=== PATIENT | female | born 1970 | race Caucasian/White ===

== ENCOUNTER 2018-03-12 19:01 | Inpatient (IN) ==
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
--- NOTE | 2018-03-12 20:25 | XR ---
EXAM DATE: 03/12/2018 8:00 PM EDT AGE/SEX: 47 years / Female INDICATIONS: . Cough. CLINICAL DATA: This is the patient's initial encounter. Patient reports that signs and symptoms have been present for 1 day and indicates a pain score of 0/10. MEDICAL/SURGICAL HISTORY: Asthma. None. COMPARISON: [facility], CHEST 1V SINGLE AP, 02/15/2018. . FINDINGS: PA and lateral views of the chest demonstrate the lungs to be symmetrically aerated without evidence of mass, infiltrate or effusion. The cardiomediastinal contours are unremarkable. Osseous structures are intact. CONCLUSION: No evidence of acute cardiopulmonary disease. Electronically signed by: Red Urban MD 03/12/2018 8:24 PM EDT
[2018-03-12 20:52] LABS: Baso # (Auto) 0.2 th/mm3 (0.0-0.2); Baso % (Auto) 1.4 % (0.0-2.0); Eos # (Auto) 0.3 th/mm3 (0.0-0.4); Hemoglobin 13.9 gm/dL (11.6-15.3); Lymph # (Auto) 3.3 th/mm3 (1.0-4.8); Lymph % (Auto) 20.8 % (9.0-44.0); Mean Corpuscular HGB Conc 33.8 % (32.0-36.0); Mean Corpuscular Hemoglobin 29.9 pg (27.0-34.0); Mean Corpuscular Volume 88.3 fL (80.0-100.0); Mean Platelet Volume 8.5 fL (7.0-11.0); Mono # (Auto) 0.8 th/mm3 (0.0-0.9); Mono % (Auto) 5.1 % (0.0-8.0); Neut # (Auto) 11.1 th/mm3 (1.8-7.7); Neut % (Auto) 70.7 % (16.0-70.0); Platelet Count 439 th/mm3 (150-450); Red Blood Count 4.64 mil/mm3 (4.00-5.30); Red Cell Distribution Width 14.4 % (11.6-17.2); White Blood Count 15.7 th/mm3 (4.0-11.0)
[2018-03-12 20:59] LABS: Amphetamine Screen,Urine Neg (Neg); Bacteria,Urine Many /hpf; Barbiturate Screen,Urine Neg (Neg); Bilirubin,Urine Negative (Negative); Calcium Oxalate Crystals,Urine Moderate /hpf; Cannabinoid Screen,Urine Neg (Neg); Clarity,Urine Cloudy (Clear); Cocaine Screen,Urine Neg (Neg); Color,Urine Yellow (Yellw/Straw); Glucose,Urine (UA) Negative (Negative); Leukocyte Esterase,Urine Trace (Negative); Mucus,Urine Moderate /lpf (Occasional); Nitrite,Urine Negative (Negative); Specific Gravity,Urine 1.013 (1.002-1.035); Squamous Epithelial Cell,Urine 17 /hpf (0-5)
[2018-03-12 21:07] LABS: Albumin 2.8 g/dL (3.4-5.0); Anion Gap 9 meq/L (5-15); Aspartate Aminotransferase 8 U/L (15-37); Blood Urea Nitrogen 6 mg/dL (7-18); Calcium 7.9 mg/dL (8.5-10.1); Carbon Dioxide 24.2 meq/L (21.0-32.0); Chloride 108 meq/L (98-107); Glomerular Filtration Rate 59 mL/min (>89); Glucose,Random 101 mg/dL (74-106); Potassium 3.4 meq/L (3.5-5.1); Sodium 141 meq/L (136-145)
[2018-03-12 21:09] LABS: Opiate Screen,Urine Neg (Neg)
[2018-03-12 21:19] LABS: Alanine Aminotransferase 12 U/L (10-53); Alkaline Phosphatase 89 U/L (45-117); Thyroid Stimulating Hormone 0.835 uIU/mL (0.358-3.740); Total Protein 6.5 g/dL (6.4-8.2)
[2018-03-12] MEDS ORDERED: QUEtiapine 100 MG Tablet PO ONE (23:06)
[2018-03-13] MEDS ORDERED: Aluminum/Magnesium/Simethacone Susp 30 ML UDC PO PRN (09:56)
[2018-03-13] MEDS ORDERED: Bisacodyl 10 MG Supp RECTAL PRN (09:56)
[2018-03-13] MEDS ORDERED: Topiramate 25 MG Tablet PO SCH (10:15)
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
[2018-03-13] MEDS: LORazepam 1 MG Tablet PO SCH (15:55)
[2018-03-13] MEDS: Gabapentin 300 MG Capsule PO SCH ×2 (16:02→17:57)
[2018-03-13] MEDS: Senna/Docusate Sodium 8.6/50 MG Tablet PO SCH (21:10)
[2018-03-14] MEDS: Gabapentin 300 MG Capsule PO SCH ×3 (08:40→17:52)
[2018-03-14] MEDS: Senna/Docusate Sodium 8.6/50 MG Tablet PO SCH ×3 (08:41→22:17)
[2018-03-14 09:48] LABS: Calcium 8.3 mg/dL (8.5-10.1); Carbon Dioxide 26.1 meq/L (21.0-32.0)
[2018-03-14 09:51] LABS: Chol/HDL Ratio 4.19 Ratio; HDL Cholesterol 39.1 mg/dL (40.0-60.0)
[2018-03-14 13:02] LABS: Hemoglobin A1c 5.6 % (4.3-6.0)
--- NOTE | 2018-03-14 15:06 | P.CONID ---
History of Present Illness Service: ID Consult date: 03/14/18 Requesting Physician: Jenn Bourgeois Reason for Consult: ESBL + E.coli UTI Primary Care Provider: UNKNOWN Chief Complaint: Suicidial Ideation History of Present Illness: 47 yo female with medical history significant for bipolar depression and asthma who presents with complaint of suicidal ideation. She states that for the last 2 weeks she has had increased racing thoughts with increased thoughts of wanting to hurt herself. . She also admits to a dry, nonproductive cough over the last month that has not been relieved with lxgg-ilg-xdeirsy cold medicines and her albuterol inhalers and nebulizers. She denies any fever, chills, she told me that her temp @ home was 99.9 She c/o generalised weakness Her temp on presentation was 100.3 WBC was 15 K UA has pyuria, and clx are + for ESBL E.coli with R to bactrim, cipro Pt was started on Keflex She denies abdominal or back pain or disuria. She denies any headaches. C/o halluconations Review of Systems All other systems reviewed negative except as stated in HPI PMFSH - History History Provided By: Patient - Medical History Medical History: Medical History (Last Reviewed 03/14/18 @ 14:55 by Angeles Dumont MD) Depressed bipolar affective disorder Extrapyramidal movement disorder Hx of migraines Hx of psychiatric care Hx of urinary tract infection Neuropathy, generalized - Surgical History Surgical History: Surgical History (Last Reviewed 03/14/18 @ 14:55 by Angeles Dumont MD) Hx of section Hx of tubal ligation - Family History Family History: Family History (Last Updated 03/14/18 @ 14:55 by Angeles Dumont MD) Other No pertinent family history - Social History I have reviewed the patient's Social History: Yes - Tobacco History Second Hand Smoke Exposure: Yes Tobacco Use In Past 30 Days: Yes Smoking Status: Heavy tobacco smoker Tobacco Type: Cigarettes - Alcohol History How Often Do You Have a Drink Containing Alcohol: Never - Substance Use History Substance History: No History of Abuse - Travel History Recent Travel in the [place] Within the Last 8 Weeks: No Recent Travel Out of the Country Within the Last 8 Weeks: No - Immunization History Tetanus Immunization: <5 Years Hx Influenza Vaccine This Season: No Medications and Allergies Active Medications: Active Medications Al Hydrox/Mg Hydrox/Simethicone (Mag-Al Plus Susp Liq) 30 ml PO Q6H PRN PRN Reason: DYSPEPSIA Al Hydroxide/Mg Hydroxide (Milk Of Magnesia Liq) 30 ml PO Q12H PRN PRN Reason: Mild Constipation Bisacodyl (Dulcolax Supp) 10 mg RECTAL DAILY PRN PRN Reason: SEVERE CONSITIPATION Cephalexin Monohydrate (Keflex) 500 mg PO BID [facility] Stop: 03/17/18 21:14 Last Admin: 03/14/18 08:40 Dose: 500 mg Gabapentin (Neurontin) 300 mg PO TID [facility] Last Admin: 03/14/18 13:07 Dose: 300 mg Lactulose (Lactulose Liq) 30 ml PO DAILY PRN PRN Reason: SEVERE CONSITIPATION Lorazepam (Ativan) 1 mg PO TID [facility] Last Admin: 03/13/18 15:55 Dose: Not Given Quetiapine Fumarate (Seroquel) 400 mg PO BID [facility] Last Admin: 03/13/18 10:40 Dose: 400 mg Senna/Docusate Sodium (Caitlin-Colace) 1 tab PO BID [facility] Last Admin: 03/14/18 08:41 Dose: Not Given Sennosides (Senokot) 17.2 mg PO Q12H PRN PRN Reason: Moderate Constipation Topiramate (Topamax) 50 mg PO BID [facility] Last Admin: 03/13/18 10:41 Dose: 50 mg Allergies Allergy/AdvReac Type Severity Reaction Status Date / Time dextromethorphan Allergy Severe FACE Verified 02/21/18 02:00 SWELLED guaifenesin Allergy Severe FACE Verified 02/21/18 02:00 SWELLED Home Medications Medication Instructions Recorded Confirmed Type gabapentin 300 mg PO TID 02/15/18 03/12/18 History quetiapine [Seroquel] 400 mg PO BID 02/15/18 03/12/18 History sertraline 100 mg PO DAILY 02/15/18 03/12/18 History topiramate 50 mg PO BID 02/15/18 03/12/18 History trihexyphenidyl 5 mg PO HS 02/15/18 03/12/18 History lorazepam 1 mg PO TID 03/12/18 03/12/18 History Exam Vital signs: Vital Signs 03/14/18 05:25 Temperature 98.3 F Pulse Rate 64 Respiratory Rate 17 Blood Pressure 86/52 L Pulse Oximetry 95 Intake & Output 03/13/18 03/14/18 03/14/18 18:59 06:59 18:59 Intake Total 240 / 240 Balance 240 / 240 Weight 76.2 kg Intake: Oral 240 / 240 Other: Weight On Admission 76.2 kg - Constitutional no acute distress, morbidly obese, cooperative - Routine HEENT Exam Head: Present: normocephalic, atraumatic Eye: Present: EOMI, PERRL ENT: Present: mucous membranes moist, oropharynx clear. Absent: dentition normal (edentulous) - Routine Neck Exam Present: supple. Absent: JVD - Routine Respiratory Exam Present: CTA bilaterally. Absent: accessory muscle use, respiratory distress, rhonchi, wheezes - Routine Cardiovascular Exam Present: RRR, S1, S2, murmur (3/6 harsh systolic ejection murmur) - Routine Abdominal Exam Present: soft, normoactive bowel sounds, tenderness, distended. Absent: organomegaly, mass - Routine Extremities Exam Present: full ROM, normal capillary refill. Absent: cyanosis, clubbing, edema - Routine Back/Spine/Pelvis Exam Back/Spine: Absent: CVA tenderness, paraspinal tenderness, vertebral tenderness - Routine Skin Exam Present: intact, dry, warm. Absent: rash - Routine Neurological Exam Present: alert, oriented X3, CN II-XII intact, moving all extremities, vision grossly intact, hearing grossly intact, normal speech - Routine Psychiatric Exam Present: auditory hallucinations, visual hallucinations, cooperative Results - Labs CBC & Chem 7: 03/12/18 20:30 03/14/18 09:00 Labs: Laboratory Results - last 24 hr 03/14/18 03/14/18 09:00 09:00 Sodium 144 Potassium 4.0 Chloride 109 H Carbon Dioxide 26.1 Anion Gap 9 BUN 5 L Creatinine 0.90 Estimated GFR 68 L Random Glucose 98 Hemoglobin A1c 5.6 Calcium 8.3 L Triglycerides 148 Cholesterol 164 LDL Cholesterol, Calc 95 HDL Cholesterol 39.1 L Cholesterol/HDL Ratio 4.19 - Imaging Chest X-Ray 03/12/18 20:00 CONCLUSION: No evidence of acute cardiopulmonary disease. Assessment and Plan - Plan Pt admitted to psych floor for hallucinations, suicidal ideations Fever, leukocytosiss, source is likely UTI' UTI, ESBL + E.coli - excess sq epi cells on UA noted transfer pt to med psych repeat UA/C+S if indicated Start Ertapenen 1 gm daily after UA and clx obtained monitor clinicaly and WBC further rec's to follow per clinical course and labs lacey RN lacey Lopez
[2018-03-14 15:48] LABS: Baso # (Auto) 0.1 th/mm3 (0.0-0.2); Eos # (Auto) 0.3 th/mm3 (0.0-0.4); Eos % (Auto) 3.8 % (0.0-4.0); Hematocrit 37.2 % (35.0-46.0); Hemoglobin 13.3 gm/dL (11.6-15.3); Lymph # (Auto) 2.9 th/mm3 (1.0-4.8); Mean Corpuscular HGB Conc 35.9 % (32.0-36.0); Mean Corpuscular Hemoglobin 31.9 pg (27.0-34.0); Mono # (Auto) 0.7 th/mm3 (0.0-0.9); Mono % (Auto) 7.3 % (0.0-8.0); Neut % (Auto) 55.9 % (16.0-70.0); Platelet Count 426 th/mm3 (150-450); Red Blood Count 4.18 mil/mm3 (4.00-5.30); Red Cell Distribution Width 14.3 % (11.6-17.2)
[2018-03-14 16:13] LABS: Albumin 2.6 g/dL (3.4-5.0); Anion Gap 5 meq/L (5-15); Aspartate Aminotransferase 11 U/L (15-37); Blood Urea Nitrogen 9 mg/dL (7-18); Calcium 8.3 mg/dL (8.5-10.1); Carbon Dioxide 31.3 meq/L (21.0-32.0); Chloride 106 meq/L (98-107); Glomerular Filtration Rate 63 mL/min (>89); Glucose,Random 92 mg/dL (74-106); Potassium 4.2 meq/L (3.5-5.1); Sodium 142 meq/L (136-145)
[2018-03-14 16:16] LABS: Alanine Aminotransferase 14 U/L (10-53); Alkaline Phosphatase 82 U/L (45-117); Total Protein 6.5 g/dL (6.4-8.2)
--- NOTE | 2018-03-14 16:16 | P.CONIM ---
History of Present Illness Consult date: 03/14/18 Reason for Consult: Medical management Primary Care Provider: UNKNOWN Chief Complaint: Suicidial Ideation Review of Systems All other systems reviewed negative except as stated in HPI [facility] - History History Provided By: Patient - Medical History Medical History: Medical History (Last Reviewed 03/14/18 @ 16:12 by Chana Lopez MD) Depressed bipolar affective disorder Extrapyramidal movement disorder Hx of migraines Hx of psychiatric care Hx of urinary tract infection Neuropathy, generalized - Surgical History Surgical History: Surgical History (Last Reviewed 03/14/18 @ 16:12 by Chana Lopez MD) Hx of section Hx of tubal ligation - Family History Family History: Family History (Last Reviewed 03/14/18 @ 16:12 by Chana Lopez MD) Other No pertinent family history - Tobacco History Second Hand Smoke Exposure: Yes Tobacco Use In Past 30 Days: Yes Smoking Status: Heavy tobacco smoker Tobacco Type: Cigarettes - Alcohol History How Often Do You Have a Drink Containing Alcohol: Never - Substance Use History Substance History: No History of Abuse - Substance Use Type Alcohol Status: Sustained Remission Route Used: By Mouth Reason for Use: Get High Comment: 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 Patient was vauge with specific substances other than ETOH. She stated she had mandated DCF classes but did not report any other counseling. - Travel History Recent Travel in the [place] Within the Last 8 Weeks: No Recent Travel Out of the Country Within the Last 8 Weeks: No - Immunization History Tetanus Immunization: <5 Years Hx Influenza Vaccine This Season: No Medications and Allergies Active Medications: Active Medications Al Hydrox/Mg Hydrox/Simethicone (Mag-Al Plus Susp Liq) 30 ml PO Q6H PRN PRN Reason: DYSPEPSIA Al Hydroxide/Mg Hydroxide (Milk Of Magnesia Liq) 30 ml PO Q12H PRN PRN Reason: Mild Constipation Bisacodyl (Dulcolax Supp) 10 mg RECTAL DAILY PRN PRN Reason: SEVERE CONSITIPATION Cephalexin Monohydrate (Keflex) 500 mg PO BID [facility] Stop: 03/17/18 21:14 Last Admin: 03/14/18 08:40 Dose: 500 mg Gabapentin (Neurontin) 300 mg PO TID [facility] Last Admin: 03/14/18 13:07 Dose: 300 mg Lactulose (Lactulose Liq) 30 ml PO DAILY PRN PRN Reason: SEVERE CONSITIPATION Lorazepam (Ativan) 1 mg PO TID [facility] Last Admin: 03/13/18 15:55 Dose: Not Given Quetiapine Fumarate (Seroquel) 400 mg PO BID [facility] Last Admin: 03/13/18 10:40 Dose: 400 mg Senna/Docusate Sodium (Caitlin-Colace) 1 tab PO BID [facility] Last Admin: 03/14/18 08:41 Dose: Not Given Sennosides (Senokot) 17.2 mg PO Q12H PRN PRN Reason: Moderate Constipation Topiramate (Topamax) 50 mg PO BID [facility] Last Admin: 03/13/18 10:41 Dose: 50 mg Allergies Allergy/AdvReac Type Severity Reaction Status Date / Time dextromethorphan Allergy Severe FACE Verified 02/21/18 02:00 SWELLED guaifenesin Allergy Severe FACE Verified 02/21/18 02:00 SWELLED Home Medications Medication Instructions Recorded Confirmed Type gabapentin 300 mg PO TID 02/15/18 03/12/18 History quetiapine [Seroquel] 400 mg PO BID 02/15/18 03/12/18 History sertraline 100 mg PO DAILY 02/15/18 03/12/18 History topiramate 50 mg PO BID 02/15/18 03/12/18 History trihexyphenidyl 5 mg PO HS 02/15/18 03/12/18 History lorazepam 1 mg PO TID 03/12/18 03/12/18 History Exam Vital signs: Vital Signs 03/14/18 05:25 Temperature 98.3 F Pulse Rate 64 Respiratory Rate 17 Blood Pressure 86/52 L Pulse Oximetry 95 Intake & Output 03/13/18 03/14/18 03/14/18 18:59 06:59 18:59 Intake Total 240 / 240 Balance 240 / 240 Weight 76.2 kg Intake: Oral 240 / 240 Other: Weight On Admission 76.2 kg Narrative: General patient in no acute distress HEENT extraocular movements are intact, clear oropharyngeal mucosa, no JVD Cardiovascular S1-S2 audible, RRR, no murmurs rubs or gallops Respiratory clear to auscultation bilaterally Abdomen soft, nontender, nondistended, normal bowel sounds Extremities no edema 2+ distal pulses in bilateral upper and lower extremities Neuro cranial nerves II through XII intact Results - Labs CBC & Chem 7: 03/14/18 15:32 03/14/18 15:32 Labs: Laboratory Results - last 24 hr 03/14/18 03/14/18 03/14/18 09:00 09:00 15:32 WBC 9.0 RBC 4.18 Hgb 13.3 Hct 37.2 MCV 89.0 MCH 31.9 MCHC 35.9 RDW 14.3 Plt Count 426 MPV 8.0 Neut % (Auto) 55.9 Lymph % (Auto) 32.0 [place] % (Auto) 7.3 Eos % (Auto) 3.8 Baso % (Auto) 1.0 Neut # (Auto) 5.0 Lymph # (Auto) 2.9 [place] # (Auto) 0.7 Eos # (Auto) 0.3 Baso # (Auto) 0.1 WBC Differential . Differential Comment Auto diff final Sodium 144 Potassium 4.0 Chloride 109 H Carbon Dioxide 26.1 Anion Gap 9 BUN 5 L Creatinine 0.90 Estimated GFR 68 L Random Glucose 98 Hemoglobin A1c 5.6 Calcium 8.3 L Triglycerides 148 Cholesterol 164 LDL Cholesterol, Calc 95 HDL Cholesterol 39.1 L Cholesterol/HDL Ratio 4.19 Assessment and Plan - Plan This patient is a 47-year-old obese female who initially presented to the emergency department with suicidal ideation. She has a diagnosis of schizophrenia, bipolar disorder, anxiety, and depression. She has had multiple psychiatric consultations in the past as well as suicide attempts throughout her lifetime. Other medical problems include asthma, COPD, history of tobacco smoking and chronic migraines. A medicine consultation was placed today for evaluation of the patient due to a urinary tract infection and low blood pressure. 1. Systemic inflammatory response syndrome likely secondary to a urinary tract infection. As per dog mentation the patient had a febrile episode when she first arrived to our emergency department. Initial labs showed elevated WBC count of 15,000. Initial urinalysis is consistent with a urinary tract infection however it was not a good sample given the high epithelial cells. Vital signs showed a systolic blood pressure in the high 80s. We evaluated the patient in the psych unit and her systolic blood pressure is around 118. The patient was found to be ambulating the unit without any complaints. I discussed the case with infectious disease, we will repeat the urinalysis and if the patient does have a urinary tract infection she will be started on ertapenem as the preliminary culture from the initial urinalysis was showing MDR ESBL E. coli. The patient will be transferred to the [facility] psych unit. Chest x-ray was done which does not show any infiltrates. Patient denies any shortness of breath or cough. ID following. 2. Schizophrenia/bipolar disorder/anxiety/depression Patient can continue her current medications. She will be in the psych unit and her psych medications can be adjusted by the psychiatrist as needed. 3. COPD Patient is on room air without any complaints of shortness of breath. If she does begin to have any complaints of shortness of breath she can be started on breathing treatments. Heparin for DVT prophylaxis.
[2018-03-14] MEDS: Sodium Chloride 0.45 % Inj 1,000 ML IV.CONT SCH (17:52)
--- NOTE | 2018-03-14 19:25 | P.PNPSY ---
Subjective Remarks: Reviewed electronic medical records and discussed case with staff. Follow-up was conducted in the patient's room. Her nurse reports she is been compliant with her medications and has had no behavioral disturbances. She states that she has been sleeping off and on and that her appetite has been "kind of better ". When asked about her mood she launches into a story about, "when I see people and I hear them my mood is bad". She maintains that she has been seeing even more people since being in the hospital. Patient's urine culture came back positive for E. coli with ESBL present. A consult was ordered and patient was subsequently moved to [facility] for IV antibiotic treatment. Mental Status Examination Appearance: Other (Asleep intially, Dressed in hospital gown, laying in bed) Consciousness: Alert, Asleep, Lethargic Orientation: x4 Speech: Slow Language: Adequate Fund of Knowledge: Adequate Attention and Concentration: Adequate Memory: Immediate (intact), Recent (intact), Remote (intact) Mood: Other ("I'm scared of the voices, they're angry at me and are telling me to hurt myself") Affect: Appropriate, Flat Thought Process & Associations: Logical, Linear Thought Content: Bizarre thinking, Hallucinations, Racing thoughts Hallucination Type: Auditory (Reports 4-5 voices that occur all the time and all at once and describes them as "Angry" and "They tell me to kill myself"), Visual ("I'm seeing people, but they don't talk, they just listen." She denies that these are people from her past or people that she knows.) Delusion Type: Paranoid (Paranoia centered around Auditory and Visual Hallucinations) Suicidal Ideation: Yes Suicidal Plan: Yes (Cutting or Shooting herself) Suicidal Intention: Yes Homicidal Ideation: No (Denies wanting to hurt others and states "the voices only tell me to hurt myself") Homicidal Plan: No Homicidal Intention: No Insight: Fair (She knew she needed help and requested to be brought to [facility] voluntarily) Judgment: Adequate (She knew she needed help and requested to be brought to [facility] voluntarily) Assessment and Plan - Assessment (1) Schizophrenia Code(s): F20.9 - Schizophrenia, unspecified Status: Acute - Plan Plan: Patient will be reevaluated Friday by the attending psychiatrist. Continue with current treatment plan. Justification for Continued Inpatient Stay: Moving this patient to a less restrictive environment would likely result in decompensation. (1) Schizophrenia Qualifiers: Schizophrenia type: paranoid schizophrenia Qualified Code(s): F20.0 - Paranoid schizophrenia
[2018-03-14] MEDS: Heparin - SQ 10,000 UNITS/ML Vial SQ SCH (22:00)
[2018-03-14] MEDS ORDERED: Haloperidol Inj 5 MG/ML Ampul IM SCH (22:42)
[2018-03-15] MEDS: Sodium Chloride 0.45 % Inj 1,000 ML IV.CONT SCH ×3 (03:58→22:15)
[2018-03-15] MEDS ORDERED: Senna/Docusate Sodium 8.6/50 MG Tablet PO PRN (10:07)
--- NOTE | 2018-03-15 10:07 | P.PNPSY ---
Subjective Remarks: Patient seen for follow, chart reviewed. Discussion nursing staff reported the patient this morning continues report auditory hallucinations of ghosts, had ETO this evening due to the same but slept last night. Patient was found sitting in hospital bed noted to be calm, cooperative. Patient states she has "alot of voices in my head, they want me". She denies the auditory hallucinations as being command in nature. She reports sleeping "off and on", adequate appetite and bowel movement. She states that she had been having loose stool for some time but happy that today is was more formed. Review of Systems All other systems reviewed negative except as stated in HPI Mental Status Examination Appearance: Disheveled Consciousness: Alert, Asleep, Lethargic Orientation: x4 Speech: Slow Language: Adequate Fund of Knowledge: Adequate Attention and Concentration: Adequate Memory: Immediate (intact), Recent (intact), Remote (intact) Mood: Other ("I'm scared of the voices, they're angry at me and are telling me to hurt myself") Affect: Appropriate, Flat Thought Process & Associations: Logical, Linear Thought Content: Bizarre thinking, Hallucinations, Racing thoughts Hallucination Type: Auditory (Reports 4-5 voices that occur all the time and all at once and describes them as "Angry" and "They tell me to kill myself"), Visual ("I'm seeing people, but they don't talk, they just listen." She denies that these are people from her past or people that she knows.) Delusion Type: Paranoid (Paranoia centered around Auditory and Visual Hallucinations) Suicidal Ideation: Yes Suicidal Plan: Yes (Cutting or Shooting herself) Suicidal Intention: No Homicidal Ideation: No Homicidal Plan: No Homicidal Intention: No Insight: Fair Judgment: Adequate Assessment and Plan - Assessment (1) Schizophrenia Code(s): F20.9 - Schizophrenia, unspecified Status: Acute - Plan Plan: Patient this time continues with perceptual disturbances along with disturbed sleep. Patient will resume quetiapine along with rest of medication regimen. We will continue to monitor mood and behavior. We will continue recommendations as per hospitalist consult, input appreciated. Discharge planning a progress. Justification for Continued Inpatient Stay: At risk of further decompensation a lower level of care. (1) Schizophrenia Qualifiers: Schizophrenia type: paranoid schizophrenia Qualified Code(s): F20.0 - Paranoid schizophrenia
[2018-03-15] MEDS: Gabapentin 300 MG Capsule PO SCH ×3 (10:25→18:11)
[2018-03-15] MEDS: Heparin - SQ 10,000 UNITS/ML Vial SQ SCH (10:25)
[2018-03-15 11:57] LABS: Bilirubin,Urine Negative (Negative); Clarity,Urine Clear (Clear); Color,Urine Straw (Yellw/Straw); Glucose,Urine (UA) Negative (Negative); Leukocyte Esterase,Urine Negative (Negative); Mucus,Urine Few /lpf (Occasional); Nitrite,Urine Negative (Negative); Specific Gravity,Urine 1.005 (1.002-1.035); Squamous Epithelial Cell,Urine 3 /hpf (0-5)
--- NOTE | 2018-03-15 18:13 | P.PNID ---
Subjective Remarks: feels good repeat UA negative afebrile Antibiotics: keflex Allergies/Adverse Reactions: Allergies dextromethorphan Allergy (Severe, Verified 02/21/18 02:00) FACE SWELLED guaifenesin Allergy (Severe, Verified 02/21/18 02:00) FACE SWELLED Objective Vital Signs 03/15/18 05:58 03/15/18 16:28 Temperature 97.7 F 98.5 F Pulse Rate 59 L Respiratory Rate 18 Blood Pressure 113/54 L 128/66 Pulse Oximetry 99 98 Intake & Output 03/14/18 03/15/18 03/15/18 18:59 06:59 18:59 Intake Total 960 / 960 1340 / 1340 1000 / 1000 Balance 960 / 960 1340 / 1340 1000 / 1000 Intake: IV 0 / 0 1000 / 1000 1/2 Normal Saline Inj 1,000 ML 0 / 0 1000 / 1000 @ 100 mls/hr IV.CONT .Q10H MARIA C Rx#:[id number] Oral 960 / 960 1340 / 1340 Other: # Voids 1 03/14/18 15:37 Blood - Peripheral Aerobic Blood Culture - Preliminary No growth in 1 day 03/14/18 15:37 Blood - Peripheral Anaerobic Blood Culture - Preliminary No growth in 1 day 03/14/18 15:32 Blood - Peripheral Aerobic Blood Culture - Preliminary No growth in 1 day 03/14/18 15:32 Blood - Peripheral Anaerobic Blood Culture - Preliminary No growth in 1 day 03/12/18 20:30 Clean Catch Urine Urine Culture - Final Escherichia coli ESBL positive Lab - Hematology Results 03/14/18 15:32 WBC 9.0 RBC 4.18 Hgb 13.3 Hct 37.2 MCV 89.0 MCH 31.9 MCHC 35.9 RDW 14.3 Plt Count 426 MPV 8.0 Neut % (Auto) 55.9 Lymph % (Auto) 32.0 [place] % (Auto) 7.3 Eos % (Auto) 3.8 Baso % (Auto) 1.0 Neut # (Auto) 5.0 Lymph # (Auto) 2.9 [place] # (Auto) 0.7 Eos # (Auto) 0.3 Baso # (Auto) 0.1 WBC Differential . Differential Comment Auto diff final Lab - Chemistry Results 03/14/18 03/14/18 03/14/18 09:00 09:00 15:32 Sodium 144 142 Potassium 4.0 4.2 Chloride 109 H 106 Carbon Dioxide 26.1 31.3 Anion Gap 9 5 BUN 5 L 9 Creatinine 0.90 0.96 Estimated GFR 68 L 63 L Random Glucose 98 92 Hemoglobin A1c 5.6 Calcium 8.3 L 8.3 L Total Bilirubin 0.1 L AST 11 L ALT 14 Alkaline Phosphatase 82 Total Protein 6.5 Albumin 2.6 L Triglycerides 148 Cholesterol 164 LDL Cholesterol, Calc 95 HDL Cholesterol 39.1 L Cholesterol/HDL Ratio 4.19 Imaging: ITS Impressions Chest X-Ray 03/12/18 20:00 CONCLUSION: No evidence of acute cardiopulmonary disease. Physical Exam: GENERAL: NAD. ambulated in the room SKIN: Warm and dry. NEUROLOGICAL: Awake and alert. Five out of 5 muscle strength in the arms and legs. Normal speech. PSYCHIATRIC: Appropriate mood and affect; Assessment and Plan - Plan Pt admitted to psych floor for hallucinations, suicidal ideations Fever, leukocytosiss, resolved no e/o UTI, - excess sq epi cells on UA noted - repeat UA is good collection and has no e/o infection ESBL + E.coli asymptomatic bacteremiuria monitor clincially no need to start Ertapennem dc keflex lacey RN
--- NOTE | 2018-03-15 20:57 | P.PNIM ---
Subjective Interval history: Patient with no complaints. Physical Exam Vital signs: Vital Signs 03/15/18 05:58 03/15/18 16:28 Temperature 97.7 F 98.5 F Pulse Rate 59 L Respiratory Rate 18 Blood Pressure 113/54 L 128/66 Pulse Oximetry 99 98 Intake & Output 03/15/18 03/15/18 03/16/18 06:59 18:59 06:59 Intake Total 1340 / 1340 2200 / 2200 Balance 1340 / 1340 2200 / 2200 Intake: IV 0 / 0 1000 / 1000 1/2 Normal Saline Inj 1,000 ML 0 / 0 1000 / 1000 @ 100 mls/hr IV.CONT .Q10H MARIA C Rx#:[id number] Oral 1340 / 1340 1200 / 1200 Other: # Voids 1 3 Narrative: General patient in no acute distress HEENT extraocular movements are intact, clear oropharyngeal mucosa, no JVD Cardiovascular S1-S2 audible, RRR, no murmurs rubs or gallops Respiratory clear to auscultation bilaterally Abdomen soft, nontender, nondistended, normal bowel sounds Extremities no edema 2+ distal pulses in bilateral upper and lower extremities Neuro cranial nerves II through XII intact Results - Labs CBC & Chem 7: 03/14/18 15:32 03/14/18 15:32 Laboratory Results - last 24 hr 03/15/18 11:30 Urine Color Straw Urine Clarity Clear Urine pH 8.0 Ur Specific Concepcion 1.005 Urine Protein Negative Urine Glucose (UA) Negative Urine Ketones Negative Urine Occult Blood Negative Urine Nitrate Negative Urine Bilirubin Negative Urine Urobilinogen Less than 2 Ur Leukocyte Esterase Negative Urine RBC Less than 1 Urine WBC Less than 1 Ur Squamous Epith Cells 3 Urine Mucus Few H Micro UA Comment Culture not ind Ur Microscopic Review Not Reportable Urine Culture Comments Culture not ind Microbiology 03/14/18 15:37 Blood - Peripheral Aerobic Blood Culture - Preliminary No growth in 1 day 03/14/18 15:37 Blood - Peripheral Anaerobic Blood Culture - Preliminary No growth in 1 day 03/14/18 15:32 Blood - Peripheral Aerobic Blood Culture - Preliminary No growth in 1 day 03/14/18 15:32 Blood - Peripheral Anaerobic Blood Culture - Preliminary No growth in 1 day Assessment and Plan - Plan This patient is a 47-year-old obese female who initially presented to the emergency department with suicidal ideation. She has a diagnosis of schizophrenia, bipolar disorder, anxiety, and depression. She has had multiple psychiatric consultations in the past as well as suicide attempts throughout her lifetime. Other medical problems include asthma, COPD, history of tobacco smoking and chronic migraines. A medicine consultation was placed today for evaluation of the patient due to a urinary tract infection and low blood pressure. 1. Suspected UTI Repeat U/A shows no signs of UTI. ID evaluated patient. No need for antibiotics Continue to monitor the patient. Blood cultures negative, follow up final culture Patient afebrile. 2. Schizophrenia/bipolar disorder/anxiety/depression Patient can continue her current medications. She will be in the psych unit and her psych medications can be adjusted by the psychiatrist as needed. 3. COPD Patient is on room air without any complaints of shortness of breath. If she does begin to have any complaints of shortness of breath she can be started on breathing treatments. Heparin for DVT prophylaxis. Internal medicine will sign off, consult if our help is needed.
[2018-03-16] MEDS: Heparin - SQ 10,000 UNITS/ML Vial SQ SCH ×3 (06:09→21:35)
[2018-03-16] MEDS: Gabapentin 300 MG Capsule PO SCH ×3 (09:47→17:00)
[2018-03-16] MEDS: LORazepam 1 MG Tablet PO SCH ×3 (09:47→17:00)
--- NOTE | 2018-03-16 16:52 | P.PNPSY ---
Subjective Remarks: Patient seen for follow-up, chart reviewed. Discussion with nursing staff reported that patient patient lab values improving, denying any auditory hallucinations, agrees to shower today. Patient was found sitting in hospital bed eating breakfast noted B, cooperative. Patient states that she slept well last evening, reports feeling "better" states that she was feeling a little confused during the day but is alert and oriented x3 at this time. Patient reports eating and drinking well with adequate bowel movement. Patient states her heart hallucinations are "going away, not as many" and also reports seeing "less ghosts, fading away". Patient states that she realizes that the visual hallucinations are perceptional disturbances. She also mentions that she lives with her mother and was visited by her mother recently. Patient reports being able to return back to her mother's home upon discharge. Patient denies any suicidal homicidal ideations at this time. Review of Systems All other systems reviewed negative except as stated in HPI Mental Status Examination Appearance: Disheveled Consciousness: Alert, Asleep, Lethargic Orientation: x4 Speech: Unremarkable Language: Adequate Fund of Knowledge: Adequate Attention and Concentration: Adequate Memory: Immediate (intact), Recent (intact), Remote (intact) Mood: Other ("I'm scared of the voices, they're angry at me and are telling me to hurt myself") Affect: Appropriate Thought Process & Associations: Logical, Linear Thought Content: Bizarre thinking (Lessening), Hallucinations (Lessening) Hallucination Type: Auditory, Visual (Lessening) Delusion Type: Paranoid (Lessening) Suicidal Ideation: No Suicidal Plan: No Suicidal Intention: No Homicidal Ideation: No Homicidal Plan: No Homicidal Intention: No Insight: Fair Judgment: Adequate Assessment and Plan - Assessment (1) Schizophrenia Code(s): F20.9 - Schizophrenia, unspecified Status: Acute - Plan Plan: Patient this time appears to have lessening of perceptional disturbances, reporting her mood to be improving. We will continue current treatment. Continue recommendations as per prior medical team. We will continue to monitor mood and behavior. Discharge planning in progress. Justification for Continued Inpatient Stay: At risk of further decompensation a lower level of care. (1) Schizophrenia Qualifiers: Schizophrenia type: paranoid schizophrenia Qualified Code(s): F20.0 - Paranoid schizophrenia
[2018-03-17] MEDS: LORazepam 1 MG Tablet PO SCH ×3 (09:11→17:45)
[2018-03-17] MEDS: Gabapentin 300 MG Capsule PO SCH ×3 (09:12→17:45)
[2018-03-17] MEDS: Heparin - SQ 10,000 UNITS/ML Vial SQ SCH ×2 (11:38→20:36)
--- NOTE | 2018-03-17 16:30 | P.PNPSY ---
Subjective Remarks: Patient seen for follow-up, chart reviewed. Discussion with nursing staff reported that patient compliant medications, slept well, denying any perceptional services or suicide ideations today. Patient was found eating lunch in the room was able to engage in interview and seen with nurse today. Patient states that she slept well last evening although reporting having " weird dreams about mother and aunt". Patient states that she is upset that her aunt is wanting to charge her rent for a room but will not respect her privacy. Patient stated that she will try to settle this issue with [facility] family. Patient reports her mood is being "good" although reporting some confusion at times but denying any auditory hallucinations and minimal visual hallucinations of ghosts. Patient reports tolerating medications well denying any significant adverse drug reactions other than some somnolence with morning dose. Patient provides collateral contact information for her mother, Keysha Posada [phone]. Review of Systems All other systems reviewed negative except as stated in HPI Mental Status Examination Appearance: Appropriate, Disheveled Consciousness: Alert, Asleep, Lethargic Orientation: x4 Speech: Unremarkable Language: Adequate Fund of Knowledge: Adequate Attention and Concentration: Adequate Memory: Immediate (intact), Recent (intact), Remote (intact) Mood: Other ("Better") Affect: Appropriate Thought Process & Associations: Logical, Linear Thought Content: Appropriate Hallucination Type: None Delusion Type: Paranoid (Lessening) Suicidal Ideation: No Suicidal Plan: No Suicidal Intention: No Homicidal Ideation: No Homicidal Plan: No Homicidal Intention: No Insight: Fair Judgment: Adequate Assessment and Plan - Assessment (1) Schizophrenia Code(s): F20.9 - Schizophrenia, unspecified Status: Acute - Plan Plan: Patient noted with improvement in mood, reports lessening of perceptional disturbances, denying any suicidal ideations today. We will continue current treatment. We will continue to monitor mood and behavior. Discharge planning in progress. Justification for Continued Inpatient Stay: At risk of further decompensation at lower level care. (1) Schizophrenia Qualifiers: Schizophrenia type: paranoid schizophrenia Qualified Code(s): F20.0 - Paranoid schizophrenia
[2018-03-17 17:26] VITALS: O2SAT 98
[2018-03-18 05:51] VITALS: PULSE 92; RESP 18; TEMP 98.3
[2018-03-18 06:38] VITALS: BP 105/70
[2018-03-18] MEDS: Heparin - SQ 10,000 UNITS/ML Vial SQ SCH (08:40)
[2018-03-18] MEDS: Gabapentin 300 MG Capsule PO SCH (08:40)
[2018-03-18] MEDS: LORazepam 1 MG Tablet PO SCH (08:40)
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
== END 2018-03-18 12:10 | disposition home or self-care (01) ==
LOC: NEPD 19:01 → NEDA 03-13 09:56 → H260 03-13 11:43 → H4EA 03-14 15:03 → H260 03-16 14:35
PROVIDERS: ADMIT Student in an Organized Health Care Education/Training Program; ATTEND Student in an Organized Health Care Education/Training Program

== ENCOUNTER 2018-03-23 11:39 | Observation (INO) ==
--- NOTE | 2018-03-23 13:19 | CT ---
EXAM DATE: 03/23/2018 12:08 PM EDT AGE/SEX: 47 years / Female INDICATIONS: Severe headache with memory loss since last night. CLINICAL DATA: This is the patient's initial encounter. Patient reports that signs and symptoms have been present for 1 day and indicates a pain score of 7/10. MEDICAL/SURGICAL HISTORY: Stroke. Migraines section. Tubal ligation. RADIATION DOSE: 56.77 CTDI (mGy) COMPARISON: [facility], MRA BRAIN W/O CONTRAST, 01/31/2012. . TECHNIQUE: CT of the head without contrast. Using automated exposure control and adjustment of the mA and/or kV according to patient size, radiation dose was kept as low as reasonably achievable to ob tain optimal diagnostic quality images. DICOM format image data is available electronically for revi ew and comparison. FINDINGS: Cerebrum: The ventricles are normal for age. No evidence of midline shift, mass lesion, hemorrhage or acute infarction. No extraaxial fluid collections are seen. Posterior Fossa: The cerebellum and brainstem are intact. The 4th ventricle is midline. The cerebe llopontine angle is unremarkable. Extracranial: The visualized portion of the orbits is intact. Skull: The calvaria is intact. No evidence of skull fracture. CONCLUSION: 1. Negative CT Head non contrast. . Electronically signed by: Wade Osman MD 03/23/2018 1:18 PM EDT
--- NOTE | 2018-03-23 17:02 | XR ---
EXAM DATE: 03/23/2018 4:33 PM EDT AGE/SEX: 47 years / Female INDICATIONS: Chest pain. Possible stroke. CLINICAL DATA: This is the patient's initial encounter. Patient reports that signs and symptoms have been present for 2 days and indicates a pain score of 3/10. MEDICAL/SURGICAL HISTORY: . Stroke. Migraines. . section. Tubal ligation. COMPARISON: [facility] [place], CHEST 2V PA&LAT, 03/12/2018. . FINDINGS: A single AP view of the chest demonstrates the lungs to be symmetrically aerated without evidence of mass, infiltrate or effusion. Linear atelectasis involving the left base. The cardiomediastinal conto urs are unremarkable. Osseous structures are intact. CONCLUSION: Negative examination. Electronically signed by: Marco Damian MD 03/23/2018 5:00 PM EDT
[2018-03-23 17:28] LABS: Baso # (Auto) 0.1 th/mm3 (0.0-0.2); Baso % (Auto) 1.1 % (0.0-2.0); Eos # (Auto) 0.4 th/mm3 (0.0-0.4); Eos % (Auto) 3.8 % (0.0-4.0); Hemoglobin 13.1 gm/dL (11.6-15.3); Lymph # (Auto) 3.4 th/mm3 (1.0-4.8); Mean Corpuscular HGB Conc 33.7 % (32.0-36.0); Mean Corpuscular Hemoglobin 30.4 pg (27.0-34.0); Mean Corpuscular Volume 90.3 fL (80.0-100.0); Mean Platelet Volume 8.8 fL (7.0-11.0); Mono # (Auto) 0.5 th/mm3 (0.0-0.9); Neut # (Auto) 6.5 th/mm3 (1.8-7.7); Neut % (Auto) 59.1 % (16.0-70.0); Platelet Count 464 th/mm3 (150-450); Red Blood Count 4.31 mil/mm3 (4.00-5.30); Red Cell Distribution Width 15.2 % (11.6-17.2); White Blood Count 10.9 th/mm3 (4.0-11.0)
[2018-03-23 17:33] LABS: Bacteria,Urine Rare /hpf; Bilirubin,Urine Negative (Negative); Clarity,Urine Hazy (Clear); Color,Urine Yellow (Yellw/Straw); Glucose,Urine (UA) Negative (Negative); Leukocyte Esterase,Urine Negative (Negative); Mucus,Urine Few /lpf (Occasional); Nitrite,Urine Negative (Negative); Specific Gravity,Urine 1.018 (1.002-1.035); Squamous Epithelial Cell,Urine 8 /hpf (0-5)
[2018-03-23 17:42] LABS: Alanine Aminotransferase 44 U/L (10-53)
[2018-03-23 17:46] LABS: INR 0.9 Ratio; Prothrombin Time 9.4 sec (9.8-11.6)
[2018-03-23 17:52] LABS: Alkaline Phosphatase 81 U/L (45-117); Anion Gap 9 meq/L (5-15); Aspartate Aminotransferase 35 U/L (15-37); Blood Urea Nitrogen 11 mg/dL (7-18); Calcium 8.1 mg/dL (8.5-10.1); Carbon Dioxide 21.2 meq/L (21.0-32.0); Chloride 109 meq/L (98-107); Creatine Kinase 167 U/L (26-192); Glomerular Filtration Rate 62 mL/min (>89); Glucose,Random 94 mg/dL (74-106); Sodium 139 meq/L (136-145)
[2018-03-23 17:53] LABS: Potassium 4.8 meq/L (3.5-5.1)
--- NOTE | 2018-03-23 18:28 | ED ---
HPI General Chief Complaint: Neuro Symptoms/Deficit Stated Complaint: Body Pain Complaint Time Seen by Provider: 03/23/18 16:21 Source: patient, EMS and RN notes reviewed Mode of arrival: EMS Limitations: no limitations History of Present Illness HPI Narrative: 47-year-old female the presents to the ED for evaluation of possible stroke. Per patient herself she believes that she might have had a stroke. Per patient she had 7 severe pain on her sides of her mouth and on her face. Per patient she started having issues with her mentation stating that she could not remember things. She also states that she has slurred speech. She denies any numbness or tingling to the upper or lower extremities bilaterally. She is able to ablate with no issues. She states that "I cannot remember my last name ". She does appear to have some aphasia and she does have trouble remembering things. She does have some repetitive questioning. Per patient she does have a history of CVA in the past per patient. She also has a history of bipolar and schizophrenia. States that she may have a urinary tract infection as well. Currently pain is 4/10. Denies any trauma. Related Data Home Medications Medication Instructions Recorded Confirmed hydroxyzine HCl 25 mg PO TID PRN 03/23/18 03/23/18 sertraline 100 mg PO DAILY 03/23/18 03/23/18 topiramate [Topamax] 50 mg PO DAILY 03/23/18 03/23/18 trazodone 100 mg PO DAILY PRN 03/23/18 03/23/18 ziprasidone HCl 40 mg PO BID 03/23/18 03/23/18 Previous Rx's Medication Instructions Recorded gabapentin 300 mg PO TID 15 Days #45 cap 03/18/18 quetiapine [Seroquel] 400 mg PO BID 15 Days #30 tab 03/18/18 Allergies Allergy/AdvReac Type Severity Reaction Status Date / Time dextromethorphan Allergy Severe FACE Verified 02/21/18 02:00 SWELLED guaifenesin Allergy Severe FACE Verified 02/21/18 02:00 SWELLED Review of Systems ROS: all other systems reviewed are negative [facility] Medical History Medical History Depressed bipolar affective disorder (Acute) Extrapyramidal movement disorder (Acute) Hx of migraines (Acute) Hx of psychiatric care (Acute) Hx of urinary tract infection (Acute) Neuropathy, generalized (Acute) Surgical History Surgical History Hx of section (Acute) Hx of tubal ligation (Acute) Family History Family History Other No pertinent family history Social History Social History Substance History: No History of Abuse Second Hand Smoke Exposure: Yes Smoking Status: Current every day smoker Tobacco Type: Cigarettes How Often Do You Have a Drink Containing Alcohol: Never Recent Travel in [facility] within the Last 8 Weeks: No Recent Out of Country Travel within the Last 8 Weeks: No Immunization History Tetanus Immunization: Unsure Exam Narrative Exam Narrative: GENERAL: Well appearing SKIN: Focused skin assessment warm/dry. HEAD: Atraumatic. Normocephalic. EYES: Pupils equal and round 4 mms reactive and accommodation. No scleral icterus. No injection or drainage. ENT: No nasal bleeding or discharge. Mucous membranes pink and moist. Tongue is midline. No uvula deviation. NECK: Trachea midline. No JVD. CARDIOVASCULAR: Regular rate and rhythm. No murmur appreciated. RESPIRATORY: No accessory muscle use. Clear to auscultation. Breath sounds equal bilaterally. GASTROINTESTINAL: Abdomen soft, non-tender, nondistended. Hepatic and splenic margins not palpable. MUSCULOSKELETAL: No obvious deformities. No clubbing. No cyanosis. No edema. Full range of motion of the upper and lower extremities bilaterally. 2+ pulses bilaterally. NEUROLOGICAL: Awake and alert and oriented x4. No obvious cranial nerve deficits. Motor grossly within normal limits. Slurred speech. PSYCHIATRIC: Appropriate mood and affect; insight and judgment normal. Course Initial Documented Vital Signs Temperature 99.7 F H 03/23/18 11:41 Pulse Rate 112 H 03/23/18 11:41 Respiratory Rate 20 03/23/18 11:41 Blood Pressure 142/71 H 03/23/18 11:41 Pulse Oximetry 99 03/23/18 11:41 Last Documented Vital Signs Temperature 99.7 F H 03/23/18 11:41 Pulse Rate 76 03/23/18 16:47 Respiratory Rate 18 03/23/18 16:00 Blood Pressure 123/63 03/23/18 16:00 Pulse Oximetry 98 03/23/18 16:47 NIH Stroke Scale NIH Stroke Scale Level of Consciousness: 0-Alert Orientation Questions: 0-Answers both correct Responds to Commands: 0-Both tasks correct Gaze Eye Movement: 0-Horizontal movement WNL Visual Braun: 0-No visual field defect Facial Movement: 0-Normal Motor Functions Arm LEFT: 0-No drift Motor Functions Arm RIGHT: 0-No drift Motor Functions Leg LEFT: 0-No drift Motor Functions Leg RIGHT: 0-No drift Limb Ataxia: 0-No ataxia Sensory Loss: 0-No sensory loss Best Language: 1-Mild aphasia Articulation: 0-Normal Extinction or Inattention Sensory: 0-Absent Total: 1 Medical Decision Making MDM Narrative Medical decision making narrative: 47-year-old female that presents to the ED for evaluation of possible stroke. Patient was properly examined and was found to have signs and symptoms of unclear etiology. She does appear to have some slurred speech and aphasia but is unclear if this is psychiatric or neurological. She does have a significant history of psychiatric illness. She per patient has a history of CVA and unfortunately I do not have any records of this. She does not have any obvious weakness to the extremities. Her NIH score is 1. Symptoms started since yesterday. My attending Dr. Radford was made aware of findings and agrees the patient can be admitted for further CVA workup rule out. BERNIE was bita and Dr España agrees to admission. Medical Screen Exam Complete: Yes Emergency Medical Condition: Yes Medical Records Medical records reviewed: Yes I reviewed the patient's medical records. Lab Data Lab results reviewed: Yes I reviewed the patient's lab results. Result diagrams: 03/23/18 17:00 03/23/18 17:00 Lab Results 03/23/18 03/23/18 03/23/18 Range/Units 17:00 17:00 17:00 WBC 10.9 (4.0-11.0) th/mm3 RBC 4.31 (4.00-5.30) mil/mm3 Hgb 13.1 (11.6-15.3) gm/dL Hct 39.0 (35.0-46.0) % MCV 90.3 (80.0-100.0) fL MCH 30.4 (27.0-34.0) pg MCHC 33.7 (32.0-36.0) % RDW 15.2 (11.6-17.2) % Plt Count 464 H (150-450) th/mm3 MPV 8.8 (7.0-11.0) fL Neut % (Auto) 59.1 (16.0-70.0) % Lymph % (Auto) 31.0 (9.0-44.0) % [place] % (Auto) 5.0 (0.0-8.0) % Eos % (Auto) 3.8 (0.0-4.0) % Baso % (Auto) 1.1 (0.0-2.0) % Neut # (Auto) 6.5 (1.8-7.7) th/mm3 Lymph # (Auto) 3.4 (1.0-4.8) th/mm3 [place] # (Auto) 0.5 (0.0-0.9) th/mm3 Eos # (Auto) 0.4 (0.0-0.4) th/mm3 Baso # (Auto) 0.1 (0.0-0.2) th/mm3 WBC Differential . Differential Comment Auto diff final PT 9.4 L (9.8-11.6) sec INR 0.9 Ratio APTT 21.0 L (24.3-30.1) sec Sodium 139 (136-145) meq/L Potassium 4.8 (3.5-5.1) meq/L Chloride 109 H (98-107) meq/L Carbon Dioxide 21.2 (21.0-32.0) meq/L Anion Gap 9 (5-15) meq/L BUN 11 (7-18) mg/dL Creatinine 0.97 (0.50-1.00) mg/dL Estimated GFR 62 L (>89) mL/min Random Glucose 94 (74-106) mg/dL Calcium 8.1 L (8.5-10.1) mg/dL Total Bilirubin 0.2 (0.2-1.0) mg/dL AST 35 (15-37) U/L ALT 44 (10-53) U/L Alkaline Phosphatase 81 (45-117) U/L Total Creatine Kinase 167 (26-192) U/L CK-MB (CK-2) Less than 1.0 (0.5-3.6) ng/mL Troponin I Less than 0.02 L (0.02-0.05) ng/mL Total Protein 7.0 (6.4-8.2) g/dL Albumin 3.0 L (3.4-5.0) g/dL Urine Color (Yellw/Straw) Urine Clarity (Clear) Urine pH (5.0-8.5) Ur Specific [place] (1.002-1.035) Urine Protein (Neg-Trace) mg/dL Urine Glucose (UA) (Negative) mg/dL Urine Ketones (Negative) mg/dL Urine Occult Blood (Negative) Urine Nitrate (Negative) Urine Bilirubin (Negative) Urine Urobilinogen (Less than 2) mg/dL Ur Leukocyte Esterase (Negative) Urine RBC (0-3) /hpf Urine WBC (0-5) /hpf Ur Squamous Epith Cells (0-5) /hpf Urine Bacteria (None) /hpf Urine Mucus (Occasional) /lpf Micro UA Comment Ur Microscopic Review Urine Culture Comments 03/23/18 Range/Units 17:10 WBC (4.0-11.0) th/mm3 RBC (4.00-5.30) mil/mm3 Hgb (11.6-15.3) gm/dL Hct (35.0-46.0) % MCV (80.0-100.0) fL MCH (27.0-34.0) pg MCHC (32.0-36.0) % RDW (11.6-17.2) % Plt Count (150-450) th/mm3 MPV (7.0-11.0) fL Neut % (Auto) (16.0-70.0) % Lymph % (Auto) (9.0-44.0) % [place] % (Auto) (0.0-8.0) % Eos % (Auto) (0.0-4.0) % Baso % (Auto) (0.0-2.0) % Neut # (Auto) (1.8-7.7) th/mm3 Lymph # (Auto) (1.0-4.8) th/mm3 [place] # (Auto) (0.0-0.9) th/mm3 Eos # (Auto) (0.0-0.4) th/mm3 Baso # (Auto) (0.0-0.2) th/mm3 WBC Differential Differential Comment PT (9.8-11.6) sec INR Ratio APTT (24.3-30.1) sec Sodium (136-145) meq/L Potassium (3.5-5.1) meq/L Chloride (98-107) meq/L Carbon Dioxide (21.0-32.0) meq/L Anion Gap (5-15) meq/L BUN (7-18) mg/dL Creatinine (0.50-1.00) mg/dL Estimated GFR (>89) mL/min Random Glucose (74-106) mg/dL Calcium (8.5-10.1) mg/dL Total Bilirubin (0.2-1.0) mg/dL AST (15-37) U/L ALT (10-53) U/L Alkaline Phosphatase (45-117) U/L Total Creatine Kinase (26-192) U/L CK-MB (CK-2) (0.5-3.6) ng/mL Troponin I (0.02-0.05) ng/mL Total Protein (6.4-8.2) g/dL Albumin (3.4-5.0) g/dL Urine Color Yellow (Yellw/Straw) Urine Clarity Hazy H (Clear) Urine pH 5.0 (5.0-8.5) Ur Specific [place] 1.018 (1.002-1.035) Urine Protein Negative (Neg-Trace) mg/dL Urine Glucose (UA) Negative (Negative) mg/dL Urine Ketones Negative (Negative) mg/dL Urine Occult Blood Negative (Negative) Urine Nitrate Negative (Negative) Urine Bilirubin Negative (Negative) Urine Urobilinogen Less than 2 (Less than 2) mg/dL Ur Leukocyte Esterase Negative (Negative) Urine RBC 1 (0-3) /hpf Urine WBC 2 (0-5) /hpf Ur Squamous Epith Cells 8 (0-5) /hpf Urine Bacteria Rare H (None) /hpf Urine Mucus Few H (Occasional) /lpf Micro UA Comment Culture not ind Ur Microscopic Review Not Reportable Urine Culture Comments Culture not ind Imaging Data Attestation: I personally reviewed and interpreted this imaging study as follows : Radiologist's impression: Head CT 03/23/18 11:49 CONCLUSION: 1. Negative CT Head non contrast. . Chest X-Ray 03/23/18 16:33 CONCLUSION: Negative examination. ECG Data Attestation: I personally reviewed and interpreted this ECG as follows: Interpretation: EKG shows sinus rhythm with no sign of acute ischemia and arrhythmia read by me and attending. Discharge Plan Discharge Disposition Patient Disposition: 30 Still Patient Discharge Details Diagnosis: Aphasia, Acute CVA (cerebrovascular accident) Physicians Team ED Provider: Rufina Radford ED Midlevel Provider: Derrek Mcwilliams Primary Care Provider: Primary Care Physici,Ethel Rxs /Orders / Referrals /Forms Prescriptions: No Action gabapentin 300 mg Capsule 300 mg PO TID 15 Days Qty: 45 RF: 1 quetiapine [Seroquel] 400 mg Tablet 400 mg PO BID 15 Days Qty: 30 RF: 1 sertraline 100 mg Tablet 100 mg PO DAILY RF: 0 trazodone 100 mg Tablet 100 mg PO DAILY PRN (Reason: insomina) RF: 0 hydroxyzine HCl 25 mg Tablet 25 mg PO TID PRN (Reason: Anxiety) RF: 0 ziprasidone HCl 40 mg Capsule 40 mg PO BID RF: 0 topiramate [Topamax] 25 mg tablet 50 mg PO DAILY RF: 0 Discharge Interventions Interventions: Vital Signs Last Done: 03/23/18 16:00 Status ED Status: Admitted Observation Patient
--- NOTE | 2018-03-23 20:34 | P.HP ---
History of Present Illness Service: [facility] Primary Care Physician: No Primary Care Physician History of Present Illness: 47-year-old female with a past medical history significant for previous CVA, COPD, bipolar disorder, depression and schizophrenia presents to the emergency department for the evaluation of neurologic symptoms that began last night. The patient states they started as bilateral temporal pain that extended across her forehead. She reports taking Excedrin Migraine with no relief. Upon waking up this morning she had slurred speech and bilateral hand weakness. She also complained of word finding difficulties and bilateral lower extremity weakness. She denies any chest pain or shortness of breath. No fever/chills. No abdominal pain. No nausea/vomiting/diarrhea. Review of Systems All other systems reviewed negative except as stated in HPI [facility] - History History Provided By: Family Member - Medical History Medical History: Medical History (Last Updated 03/23/18 @ 20:19 by Saira Zendejas MD) Cerebral arteriosclerosis with history of previous cerebrovascular accident Schizophrenia Depressed bipolar affective disorder Extrapyramidal movement disorder Hx of migraines Hx of psychiatric care Hx of urinary tract infection Neuropathy, generalized - Surgical History Surgical History: Surgical History (Last Updated 03/23/18 @ 20:19 by Saira Zendejas MD) History of bladder surgery History of knee surgery Hx of section Hx of tubal ligation - Family History Family History: Family History (Last Reviewed 03/23/18 @ 20:20 by Saira Zendejas MD) Other No pertinent family history - Tobacco History Second Hand Smoke Exposure: Yes Tobacco Use In Past 30 Days: Yes Smoking Status: Current every day smoker Tobacco Type: Cigarettes - Alcohol History How Often Do You Have a Drink Containing Alcohol: Never - Substance Use History Substance History: No History of Abuse - Travel History Recent Travel in the [place] Within the Last 8 Weeks: No Recent Travel Out of the Country Within the Last 8 Weeks: No - Immunization History Tetanus Immunization: Unsure Medications and Allergies Active Medications: Active Medications Al Hydroxide/Mg Hydroxide (Milk Of Erin Linikolai) 30 ml PO Q12H PRN PRN Reason: Mild Constipation Aspirin (Aspirin) 325 mg PO DAILY MARIA C Sodium Chloride (Ns Inj) 1,000 mls @ 100 mls/hr IV.CONT .Q10H MARIA C Allergies Allergy/AdvReac Type Severity Reaction Status Date / Time dextromethorphan Allergy Severe FACE Verified 02/21/18 02:00 SWELLED guaifenesin Allergy Severe FACE Verified 02/21/18 02:00 SWELLED Home Medications Medication Instructions Recorded Confirmed Type hydroxyzine HCl 25 mg PO TID PRN 03/23/18 03/23/18 History sertraline 100 mg PO DAILY 03/23/18 03/23/18 History topiramate [Topamax] 50 mg PO DAILY 03/23/18 03/23/18 History trazodone 100 mg PO DAILY PRN 03/23/18 03/23/18 History ziprasidone HCl 40 mg PO BID 03/23/18 03/23/18 History Exam Vital signs: Vital Signs 03/23/18 11:41 03/23/18 16:00 03/23/18 16:47 Temperature 99.7 F H Pulse Rate 112 H 75 76 Respiratory Rate 20 18 Blood Pressure 142/71 H 123/63 Pulse Oximetry 99 98 98 Intake & Output 03/23/18 03/23/18 03/24/18 06:59 18:59 06:59 Weight 75.75 kg Narrative: Gen.: No acute distress Head: Normocephalic. Atraumatic. EENT: Pupils equal round and reactive to light. Nose without drainage. Airway intact. Throat without injection. Cardiovascular: Regular rate and rhythm. No murmurs, rubs or gallops. Respiratory: Lungs clear to auscultation bilaterally. No wheezes or rhonchi. Abdomen: Soft, nontender, nondistended. No peritoneal signs. Musculoskeletal: No gross deformities. No edema. Skin: No obvious rashes or erythema. Neuro: Cranial nerves II through XII intact. Slowed speech, baseline unknown. Right lower extremity strength 3/5, left lower extremity strength 0/5 although patient's participation in the exam is questionable. Upper extremity strength 5 /5 bilaterally. Results - Labs CBC & Chem 7: 03/23/18 17:00 03/23/18 17:00 Labs: Laboratory Results - last 24 hr 03/23/18 03/23/18 03/23/18 17:00 17:00 17:00 WBC 10.9 RBC 4.31 Hgb 13.1 Hct 39.0 MCV 90.3 MCH 30.4 MCHC 33.7 RDW 15.2 Plt Count 464 H MPV 8.8 Neut % (Auto) 59.1 Lymph % (Auto) 31.0 [place] % (Auto) 5.0 Eos % (Auto) 3.8 Baso % (Auto) 1.1 Neut # (Auto) 6.5 Lymph # (Auto) 3.4 [place] # (Auto) 0.5 Eos # (Auto) 0.4 Baso # (Auto) 0.1 WBC Differential . Differential Comment Auto diff final PT 9.4 L INR 0.9 APTT 21.0 L Sodium 139 Potassium 4.8 Chloride 109 H Carbon Dioxide 21.2 Anion Gap 9 BUN 11 Creatinine 0.97 Estimated GFR 62 L Random Glucose 94 Calcium 8.1 L Total Bilirubin 0.2 AST 35 ALT 44 Alkaline Phosphatase 81 Total Creatine Kinase 167 CK-MB (CK-2) Less than 1.0 Troponin I Less than 0.02 L Total Protein 7.0 Albumin 3.0 L Urine Color Urine Clarity Urine pH Ur Specific [place] Urine Protein Urine Glucose (UA) Urine Ketones Urine Occult Blood Urine Nitrate Urine Bilirubin Urine Urobilinogen Ur Leukocyte Esterase Urine RBC Urine WBC Ur Squamous Epith Cells Urine Bacteria Urine Mucus Micro UA Comment Ur Microscopic Review Urine Culture Comments 03/23/18 17:10 WBC RBC Hgb Hct MCV MCH MCHC RDW Plt Count MPV Neut % (Auto) Lymph % (Auto) [place] % (Auto) Eos % (Auto) Baso % (Auto) Neut # (Auto) Lymph # (Auto) [place] # (Auto) Eos # (Auto) Baso # (Auto) WBC Differential Differential Comment PT INR APTT Sodium Potassium Chloride Carbon Dioxide Anion Gap BUN Creatinine Estimated GFR Random Glucose Calcium Total Bilirubin AST ALT Alkaline Phosphatase Total Creatine Kinase CK-MB (CK-2) Troponin I Total Protein Albumin Urine Color Yellow Urine Clarity Hazy H Urine pH 5.0 Ur Specific [place] 1.018 Urine Protein Negative Urine Glucose (UA) Negative Urine Ketones Negative Urine Occult Blood Negative Urine Nitrate Negative Urine Bilirubin Negative Urine Urobilinogen Less than 2 Ur Leukocyte Esterase Negative Urine RBC 1 Urine WBC 2 Ur Squamous Epith Cells 8 Urine Bacteria Rare H Urine Mucus Few H Micro UA Comment Culture not ind Ur Microscopic Review Not Reportable Urine Culture Comments Culture not ind - Imaging Impressions Head CT 03/23/18 11:49 CONCLUSION: 1. Negative CT Head non contrast. . Chest X-Ray 03/23/18 16:33 CONCLUSION: Negative examination. Caprini VTE Risk Assessment Caprini VTE Risk Assessment: No/Low Risk (score <= 1) Caprini Risk Assessment Model: Point Value = 1 Point Value = 2 Point Value = 3 Point Value = 5 Age 41-60 Minor surgery BMI > 25 kg/m2 Swollen legs Varicose veins or History of unexplained or recurrent spontaneous Oral contraceptives or hormone replacement Sepsis (< 1 month) Serious lung disease, including pneumonia (< 1 month) Abnormal pulmonary function Acute myocardial infarction Congestive heart failure (< 1 month) History of inflammatory bowel disease Medical patient at bed rest Age 61-74 Arthroscopic surgery Major open surgery (> 45 min) Laparoscopic surgery (> 45 min) Malignancy Confined to bed (> 72 hours) Immobilizing plaster cast Central venous access Age >= 75 History of VTE Family history of VTE Factor V Leiden Prothrombin [id number] Lupus anticoagulant Anticardiolipin antibodies Elevated serum homocysteine Heparin-induced thrombocytopenia Other congenital or acquired thrombophilia Stroke (< 1 month) Elective arthroplasty Hip, pelvis, or leg fracture Acute spinal cord injury (< 1 month) Prophylaxis Regimen: Total Risk Factor Score Risk Level Prophylaxis Regimen 0-1 Low Early ambulation 2 Moderate Order ONE of the following: *Sequential Compression Device (SCD) *Heparin 5000 units SQ BID 3-4 Higher Order ONE of the following medications: *Heparin 5000 units SQ TID *Enoxaparin/Lovenox 40 mg SQ daily (WT < 150 kg, CrCl > 30 mL/min) *Enoxaparin/Lovenox 30 mg SQ daily (WT < 150 kg, CrCl > 10-29 mL/min) *Enoxaparin/Lovenox 30 mg SQ BID (WT < 150 kg, CrCl > 30 mL/min) AND/OR *Sequential Compression Device (SCD) 5 or more Highest Order ONE of the following medications: *Heparin 5000 units SQ TID (Preferred with Epidurals) *Enoxaparin/Lovenox 40 mg SQ daily (WT < 150 kg, CrCl > 30 mL/min) *Enoxaparin/Lovenox 30 mg SQ daily (WT < 150 kg, CrCl > 10-29 mL/min) *Enoxaparin/Lovenox 30 mg SQ BID (WT < 150 kg, CrCl > 30 mL/min) AND *Sequential Compression Device (SCD) Assessment and Plan - Plan Assessment/plan: 1. Weakness/slurred speech/dysarthria Patient with history of previous CVA Head CT negative for acute process MRI/MRA pending, carotid ultrasound pending Neurology consulted, appreciate recommendations Aspirin 2. Bipolar disorder/depression/schizophrenia Holding home medications until cleared by neurology as symptoms may be medication effect FEN Regular diet, pending swallow evaluation NS at 100 cc/hour Electrolytes: Monitor and replete as needed
--- NOTE | 2018-03-23 20:38 | MR ---
EXAM DATE: 03/23/2018 7:19 PM EDT AGE/SEX: 47 years / Female INDICATIONS: CVA. Slurred speech since yesterday. CLINICAL DATA: This is the patient's initial encounter. Patient reports that signs and symptoms have been present for 2 days and indicates a pain score of 7/10. MEDICAL/SURGICAL HISTORY: . Strokes- 5 yrs and 7 yrs ago. section. Tubal ligation. L eft knee sx, Bladder sx. COMPARISON: C, MRA HEAD W/O CONTRAST, 03/23/2018. . TECHNIQUE: Multiplanar, multisequence examination of the brain was performed without contrast. FINDINGS: No intracranial mass or midline shift. No hydrocephalus. No evidence for recent infarction. No abnorm al extra-axial fluid collections. No sellar mass identified. CONCLUSION: 1. No acute findings. Specifically no evidence for recent infarction. Electronically signed by: Landon Melissa MD 03/23/2018 8:37 PM EDT
--- NOTE | 2018-03-23 20:42 | MR ---
EXAM DATE: 03/23/2018 7:19 PM EDT AGE/SEX: 47 years / Female INDICATIONS: CVA. Slurred speech since yesterday. CLINICAL DATA: This is the patient's initial encounter. Patient reports that signs and symptoms have been present for 2 days and indicates a pain score of 4/10. MEDICAL/SURGICAL HISTORY: . [place]- 5 and 7 years ago. Tubal ligation. section. Left knee sx. COMPARISON: [facility] – [place], MR HEAD W/O CONTRAST, 03/23/2018. . TECHNIQUE: 3D [id number] MRA was performed. Source images, multiplanar STS MIP, and 3D volum e MIP reconstructions were reviewed. FINDINGS: There is excellent visualization of the major intracranial arteries out to the second-order branch ve ssels. There is no evidence for aneurysm, vessel truncation or stenosis, and no evidence for vascula r malformation. CONCLUSION: 1. No acute findings. Electronically signed by: Landon Melissa MD 03/23/2018 8:41 PM EDT
--- NOTE | 2018-03-23 21:29 | US ---
EXAM DATE: 03/23/2018 12:00 AM EDT AGE/SEX: 47 years / Female INDICATIONS: Cerebrovascular accident. CLINICAL DATA: This is the patient's subsequent encounter. Patient reports that signs and symptoms h ave been present for 4 - 6 days and indicates a pain score of 0/10. MEDICAL/SURGICAL HISTORY: . Bipolar disorder. Urinary tract infection. Neuropathy. se ction. Tubal ligation. COMPARISON: [facility], US CAROTID ARTERIES, 01/31/2012. . VELOCITY PARAMETERS: ICA/CCA Ratio: Right 1.19 , Left 1.02 ICA: Right 112 cm/sec, Left 110 cm/sec CCA: Right 94 cm/sec, Left 108 cm/sec ECA: Right 109 cm/sec, Left 103 cm/sec Vertebral: Right 52 cm/sec antegrade, Left 71 cm/sec antegrade FINDINGS: Right Carotid: No significant plaque is visualized.The waveforms are within normal limits. Left Carotid: No significant plaque is visualized. The waveforms are within normal limits. Other: None. CONCLUSION: 1. Right Internal Carotid Artery: No significant stenosis or atherosclerotic plaque is visualized. 2. Left Internal Carotid Artery: No significant stenosis or atherosclerotic plaque is visualized. Electronically signed by: Landon Melissa MD 03/23/2018 9:27 PM EDT
[2018-03-23] MEDS: Sod Chloride 0.9% Inj 1,000 ML IV.CONT SCH (23:40)
[2018-03-24] MEDS: Sod Chloride 0.9% Inj 1,000 ML IV.CONT SCH ×2 (07:27→18:55)
[2018-03-24 07:41] LABS: Baso # (Auto) 0.1 th/mm3 (0.0-0.2); Baso % (Auto) 1.2 % (0.0-2.0); Eos # (Auto) 0.4 th/mm3 (0.0-0.4); Hematocrit 37.8 % (35.0-46.0); Hemoglobin 12.9 gm/dL (11.6-15.3); Lymph # (Auto) 2.5 th/mm3 (1.0-4.8); Lymph % (Auto) 24.5 % (9.0-44.0); Mean Corpuscular HGB Conc 34.2 % (32.0-36.0); Mean Corpuscular Hemoglobin 30.2 pg (27.0-34.0); Mean Corpuscular Volume 88.4 fL (80.0-100.0); Mean Platelet Volume 8.3 fL (7.0-11.0); Mono # (Auto) 0.6 th/mm3 (0.0-0.9); Mono % (Auto) 5.7 % (0.0-8.0); Neut # (Auto) 6.6 th/mm3 (1.8-7.7); Neut % (Auto) 64.6 % (16.0-70.0); Platelet Count 406 th/mm3 (150-450); Red Blood Count 4.27 mil/mm3 (4.00-5.30); White Blood Count 10.1 th/mm3 (4.0-11.0)
[2018-03-24 07:58] LABS: Albumin 2.8 g/dL (3.4-5.0); Anion Gap 10 meq/L (5-15); Aspartate Aminotransferase 13 U/L (15-37); Blood Urea Nitrogen 10 mg/dL (7-18); Calcium 8.6 mg/dL (8.5-10.1); Carbon Dioxide 19.9 meq/L (21.0-32.0); Chloride 110 meq/L (98-107); Glomerular Filtration Rate 79 mL/min (>89); Glucose,Random 102 mg/dL (74-106); Sodium 140 meq/L (136-145)
[2018-03-24 08:03] LABS: Alanine Aminotransferase 36 U/L (10-53); Alkaline Phosphatase 76 U/L (45-117); Total Protein 6.2 g/dL (6.4-8.2)
--- NOTE | 2018-03-24 08:35 | P.CONNEU ---
History of Present Illness Service: Neurology Primary Care Provider: No Primary Care Physician Chief Complaint: History of stroke, memory deficit History of Present Illness: 'A 47-year-old female apparently relocated from [facility] staying with her mother then moved in with her and on disability for psychiatric disease, with a history of schizophrenia, bipolar, depression tells me she came to the ER for left calf weight pain and worsening memory concerning for stroke. She does receive her psychiatric care from Dominic Bynum. She states she needs to establish care with a psychiatrist as well as primary care physician has been able to get one. States she is requiring some refills on her medications She had an MRI MRA of the brain performed carotid ultrasound all of which were negative for any acute stroke or vaso-occlusive disease. No evidence of any previous stroke States she had a stroke a few years ago treated at [facility] which she had left facial droop which resolved. States her only deficits have been memory. Review of Systems All other systems reviewed negative except as stated in HPI PMFSH - History History Provided By: Family Member - Medical History Medical History: Medical History (Last Reviewed 03/24/18 @ 08:16 by Meghan Barber) Cerebral arteriosclerosis with history of previous cerebrovascular accident Schizophrenia Depressed bipolar affective disorder Extrapyramidal movement disorder Hx of migraines Hx of psychiatric care Hx of urinary tract infection Neuropathy, generalized - Surgical History Surgical History: Surgical History (Last Updated 03/23/18 @ 20:19 by Saira Zendejas MD) History of bladder surgery History of knee surgery Hx of section Hx of tubal ligation - Family History Family History: Family History (Last Reviewed 03/23/18 @ 20:20 by Saira Zendejas MD) Other No pertinent family history - Tobacco History Second Hand Smoke Exposure: Yes Tobacco Use In Past 30 Days: Yes Smoking Status: Current every day smoker Tobacco Type: Cigarettes - Alcohol History How Often Do You Have a Drink Containing Alcohol: Never - Substance Use History Substance History: Past History - Travel History Recent Travel in the [facility] Within the Last 8 Weeks: No Recent Travel Out of the Country Within the Last 8 Weeks: No - Immunization History Tetanus Immunization: Unsure Medications and Allergies Active Medications: Active Medications Al Hydroxide/Mg Hydroxide (Milk Of Magndelia Liq) 30 ml PO Q12H PRN PRN Reason: Mild Constipation Aspirin (Aspirin) 325 mg PO DAILY MARIA C Sodium Chloride (Ns Inj) 1,000 mls @ 100 mls/hr IV.CONT .Q10H MARIA C Last Admin: 03/24/18 07:27 Dose: Not Given Allergies Allergy/AdvReac Type Severity Reaction Status Date / Time dextromethorphan Allergy Severe FACE Verified 02/21/18 02:00 SWELLED guaifenesin Allergy Severe FACE Verified 02/21/18 02:00 SWELLED Home Medications Medication Instructions Recorded Confirmed Type hydroxyzine HCl 25 mg PO TID PRN 03/23/18 03/23/18 History sertraline 100 mg PO DAILY 03/23/18 03/23/18 History topiramate [Topamax] 50 mg PO DAILY 03/23/18 03/23/18 History trazodone 100 mg PO DAILY PRN 03/23/18 03/23/18 History ziprasidone HCl 40 mg PO BID 03/23/18 03/23/18 History Exam Vital signs: Vital Signs 03/23/18 11:41 03/23/18 16:00 03/23/18 16:47 Temperature 99.7 F H Pulse Rate 112 H 75 76 Respiratory Rate 20 18 Blood Pressure 142/71 H 123/63 Pulse Oximetry 99 98 98 03/23/18 20:00 03/24/18 00:00 03/24/18 04:00 Temperature 99.0 F 99.0 F 98.6 F Pulse Rate 76 80 75 Respiratory Rate 16 16 16 Blood Pressure 114/70 121/69 116/77 Pulse Oximetry 97 96 97 03/24/18 08:00 Temperature 98.6 F Pulse Rate 71 Respiratory Rate 16 Blood Pressure 109/72 Pulse Oximetry 98 Intake & Output 03/23/18 03/24/18 03/24/18 18:59 06:59 18:59 Weight 75.75 kg Other: # Voids 3 Narrative: GENERAL: in NAD, SKIN: Warm and dry. HEAD: Atraumatic. Normocephalic. EYES: Pupils equal and round. No scleral icterus. ENT: No nasal bleeding or discharge. Mucous membranes pink and moist. NECK: Trachea midline. No JVD. CARDIOVASCULAR: Regular rate and rhythm. RESPIRATORY: No accessory muscle use. GASTROINTESTINAL: Abdomen soft, non-tender, nondistended. MUSCULOSKELETAL: Extremities without clubbing, cyanosis, or edema. No obvious deformities. NEUROLOGICAL: Awake and alert. No aphasia, oriented x3 pleasant, calm fluent articulate, No facial asymmetry, OU 3-2mm, eomi, VFF, No drift, Motor grossly within normal limits. Five out of 5 muscle strength in the arms and legs. Tone normal in all 4 limbs, Sensory normal in all 4 extremities to pin, msr 2++ sym, no clonus, planterflexor, gait not assessed secondary fall risk PSYCHIATRIC: Appropriate mood and affect; insight and judgment normal. Appear to give a reasonably good history at bedside - Constitutional no acute distress - Routine HEENT Exam Head: Present: normocephalic Eye: Present: EOMI Results - Labs CBC & Chem 7: 03/24/18 07:10 03/24/18 07:10 Labs: Laboratory Results - last 24 hr 03/23/18 03/23/18 03/23/18 17:00 17:00 17:00 WBC 10.9 RBC 4.31 Hgb 13.1 Hct 39.0 MCV 90.3 MCH 30.4 MCHC 33.7 RDW 15.2 Plt Count 464 H MPV 8.8 Neut % (Auto) 59.1 Lymph % (Auto) 31.0 [place] % (Auto) 5.0 Eos % (Auto) 3.8 Baso % (Auto) 1.1 Neut # (Auto) 6.5 Lymph # (Auto) 3.4 [place] # (Auto) 0.5 Eos # (Auto) 0.4 Baso # (Auto) 0.1 WBC Differential . Differential Comment Auto diff final PT 9.4 L INR 0.9 APTT 21.0 L Sodium 139 Potassium 4.8 Chloride 109 H Carbon Dioxide 21.2 Anion Gap 9 BUN 11 Creatinine 0.97 Estimated GFR 62 L Random Glucose 94 Calcium 8.1 L Total Bilirubin 0.2 AST 35 ALT 44 Alkaline Phosphatase 81 Total Creatine Kinase 167 CK-MB (CK-2) Less than 1.0 Troponin I Less than 0.02 L Total Protein 7.0 Albumin 3.0 L Urine Color Urine Clarity Urine pH Ur Specific [place] Urine Protein Urine Glucose (UA) Urine Ketones Urine Occult Blood Urine Nitrate Urine Bilirubin Urine Urobilinogen Ur Leukocyte Esterase Urine RBC Urine WBC Ur Squamous Epith Cells Urine Bacteria Urine Mucus Micro UA Comment Ur Microscopic Review Urine Culture Comments 03/23/18 03/24/18 03/24/18 17:10 07:10 07:10 WBC 10.1 RBC 4.27 Hgb 12.9 Hct 37.8 MCV 88.4 MCH 30.2 MCHC 34.2 RDW 15.0 Plt Count 406 MPV 8.3 Neut % (Auto) 64.6 Lymph % (Auto) 24.5 [place] % (Auto) 5.7 Eos % (Auto) 4.0 Baso % (Auto) 1.2 Neut # (Auto) 6.6 Lymph # (Auto) 2.5 [place] # (Auto) 0.6 Eos # (Auto) 0.4 Baso # (Auto) 0.1 WBC Differential . Differential Comment Auto diff final PT INR APTT Sodium 140 Potassium 4.0 D Chloride 110 H Carbon Dioxide 19.9 L Anion Gap 10 BUN 10 Creatinine 0.79 Estimated GFR 79 L Random Glucose 102 Calcium 8.6 Total Bilirubin 0.1 L AST 13 L ALT 36 Alkaline Phosphatase 76 Total Creatine Kinase CK-MB (CK-2) Troponin I Total Protein 6.2 L D Albumin 2.8 L Urine Color Yellow Urine Clarity Hazy H Urine pH 5.0 Ur Specific [place] 1.018 Urine Protein Negative Urine Glucose (UA) Negative Urine Ketones Negative Urine Occult Blood Negative Urine Nitrate Negative Urine Bilirubin Negative Urine Urobilinogen Less than 2 Ur Leukocyte Esterase Negative Urine RBC 1 Urine WBC 2 Ur Squamous Epith Cells 8 Urine Bacteria Rare H Urine Mucus Few H Micro UA Comment Culture not ind Ur Microscopic Review Not Reportable Urine Culture Comments Culture not ind - Imaging Impressions Carotid Doppler Study 03/23/18 00:00 CONCLUSION: 1. Right Internal Carotid Artery: No significant stenosis or atherosclerotic plaque is visualized. 2. Left Internal Carotid Artery: No significant stenosis or atherosclerotic plaque is visualized. Head MRI 03/23/18 00:00 CONCLUSION: 1. No acute findings. Specifically no evidence for recent infarction. Head MRA 03/23/18 00:00 CONCLUSION: 1. No acute findings. Head CT 03/23/18 11:49 CONCLUSION: 1. Negative CT Head non contrast. . Chest X-Ray 03/23/18 16:33 CONCLUSION: Negative examination. Review/Management - Diagnosis (1) Depression Code(s): F32.9 - Major depressive disorder, single episode, unspecified Status : Acute Current Visit: Yes (2) Bipolar 1 disorder Code(s): F31.9 - Bipolar disorder, unspecified Status: Acute Current Visit: Yes (3) Schizophrenia Code(s): F20.9 - Schizophrenia, unspecified Status: Acute Current Visit: No - Review/Management Plan: Questionable history of previous stroke questionable current symptoms Possible psychogenic component associate with her psychiatric illness Recommendation Medical to evaluate her left calf pain she had a negative [place] on my exam food services director to help her establish care with local physicians Aspirin daily We will obtain EEG, B12, TSH With a brisk lower semi-reflexes we will obtain MRI C-spine to exclude any significant cervical stenosis Therapy May require psychiatric evaluation in versus outpatient Discharge planning thereafter Behavioral modification and risk factor reduction. Weight loss, blood pressure control, blood sugar control, lipid control. Exercise (3) Schizophrenia Qualifiers: Schizophrenia type: paranoid schizophrenia Qualified Code(s): F20.0 - Paranoid schizophrenia
[2018-03-24] MEDS: Aspirin 325 MG Tablet PO SCH (08:39)
[2018-03-24 10:38] LABS: Chol/HDL Ratio 3.99 Ratio; HDL Cholesterol 51.1 mg/dL (40.0-60.0); Thyroid Stimulating Hormone 1.52 uIU/mL (0.358-3.740)
--- NOTE | 2018-03-24 12:19 | MR ---
EXAM DATE: 03/24/2018 9:55 AM EDT AGE/SEX: 47 years / Female INDICATIONS: Extremity weakness. CLINICAL DATA: This is the patient's initial encounter. Patient reports that signs and symptoms have been present for 2 days and indicates a pain score of 2/10. MEDICAL/SURGICAL HISTORY: Stroke. Tubal ligation. Bladder surgery. Left knee surgery. COMPARISON: [facility], MRA CAROTIDS W CONTRAST, 01/31/2012. . TECHNIQUE: Multiplanar, multisequence MRI examination of the cervical spine was performed without co ntrast. FINDINGS: Vertebrae: Normal vertebral body height. Homogeneous marrow signal. Alignment: Normal. Cord: Normal configuration and signal. Post Fossa: The cerebellar tonsils are normal in position. C2-C3: The thecal sac has a normal configuration. There is no evidence of disc herniation or spinal canal stenosis. The neural foramina are patent bilaterally. C3-C4: The thecal sac has a normal configuration. There is no evidence of disc herniation or spinal canal stenosis. The neural foramina are patent bilaterally. C4-C5: The thecal sac has a normal configuration. There is no evidence of disc herniation or spinal canal stenosis. The neural foramina are patent bilaterally. C5-C6: The thecal sac has a normal configuration. There is no evidence of disc herniation or spinal canal stenosis. The neural foramina are patent bilaterally. C6-C7: Tiny central disc bulge with no canal or foraminal narrowing. C7-T1: No epidural impressions seen. CONCLUSION: 1. There is mild disc desiccation and a tiny central disc bulge at C6-7. 2. Minimal anterior osteophyte formation at C5-6. Electronically signed by: Wade Osman MD 03/24/2018 12:17 PM EDT
--- NOTE | 2018-03-24 14:31 | P.PN ---
Subjective Interval history: Follow-up for multiple vague neurological complaints, concern for TIA/CVA. Patient reports feeling better today. She complains of not getting any sleep last night, requesting medication to help her sleep tonight. She states she has a headache with pressure across bilateral frontotemporal lobes. Denies any visual changes, photophobia, nausea. She states her bilateral arm/leg weakness has improved. She does complain of left calf pain although denies noticing any swelling. She denies any chest pain, palpitations, shortness of breath. She is requesting her psychiatric medications be restarted. She has no other medical complaints at this time. Discussed recommendations for aspirin and statin, risks discussed, patient verbalizes understanding and agrees to start medications. Physical Exam Vital signs: Vital Signs 03/23/18 16:00 03/23/18 16:47 03/23/18 20:00 Temperature 99.0 F Pulse Rate 75 76 76 Respiratory Rate 18 16 Blood Pressure 123/63 114/70 Pulse Oximetry 98 98 97 03/24/18 00:00 03/24/18 04:00 03/24/18 08:00 Temperature 99.0 F 98.6 F 98.6 F Pulse Rate 80 75 71 Respiratory Rate 16 16 16 Blood Pressure 121/69 116/77 109/72 Pulse Oximetry 96 97 98 03/24/18 08:30 03/24/18 12:00 Temperature 98.0 F Pulse Rate 73 Respiratory Rate 16 Blood Pressure 125/75 Pulse Oximetry 98 99 Intake & Output 03/23/18 03/24/18 03/24/18 18:59 06:59 18:59 Weight 75.75 kg Other: # Voids 3 Narrative: GENERAL: Well-nourished, well-developed middle-aged female patient in [facility]. SKIN: Warm and dry. No rash. HEENT: Normocephalic. Atraumatic. Pupils equal and round. Mucous membranes pink and moist. NECK: Supple. Trachea midline. Cervical spine nontender. CARDIOVASCULAR: Regular rate and rhythm. 4/6 systolic murmur heard best at LUSB. RESPIRATORY: No accessory muscle use. Clear to auscultation. Breath sounds equal bilaterally. GASTROINTESTINAL: Abdomen soft, non-tender, nondistended. Normoactive bowel sounds x4. MUSCULOSKELETAL: No obvious deformities. Extremities without clubbing, cyanosis , or edema. NEUROLOGICAL: Awake and alert. No obvious cranial nerve deficits. 5/5 strength in bilateral upper and lower extremities. Normal speech. No pronator drift. Bilateral facial and upper/lower extremity sensation equal and intact. No facial droop/lid lag/tongue deviation. PSYCHIATRIC: Appropriate mood and affect; insight and judgment normal. Results - Labs CBC & Chem 7: 03/24/18 07:10 03/24/18 07:10 Laboratory Results - last 24 hr 03/23/18 03/23/18 03/23/18 17:00 17:00 17:00 WBC 10.9 RBC 4.31 Hgb 13.1 Hct 39.0 MCV 90.3 MCH 30.4 MCHC 33.7 RDW 15.2 Plt Count 464 H MPV 8.8 Neut % (Auto) 59.1 Lymph % (Auto) 31.0 [place] % (Auto) 5.0 Eos % (Auto) 3.8 Baso % (Auto) 1.1 Neut # (Auto) 6.5 Lymph # (Auto) 3.4 [place] # (Auto) 0.5 Eos # (Auto) 0.4 Baso # (Auto) 0.1 WBC Differential . Differential Comment Auto diff final ESR PT 9.4 L INR 0.9 APTT 21.0 L Sodium 139 Potassium 4.8 Chloride 109 H Carbon Dioxide 21.2 Anion Gap 9 BUN 11 Creatinine 0.97 Estimated GFR 62 L Random Glucose 94 Calcium 8.1 L Total Bilirubin 0.2 AST 35 ALT 44 Alkaline Phosphatase 81 Total Creatine Kinase 167 CK-MB (CK-2) Less than 1.0 Troponin I Less than 0.02 L Total Protein 7.0 Albumin 3.0 L Triglycerides Cholesterol LDL Cholesterol, Calc HDL Cholesterol Cholesterol/HDL Ratio TSH Urine Color Urine Clarity Urine pH Ur Specific [place] Urine Protein Urine Glucose (UA) Urine Ketones Urine Occult Blood Urine Nitrate Urine Bilirubin Urine Urobilinogen Ur Leukocyte Esterase Urine RBC Urine WBC Ur Squamous Epith Cells Urine Bacteria Urine Mucus Micro UA Comment Ur Microscopic Review Urine Culture Comments 03/23/18 03/24/18 03/24/18 17:10 07:10 07:10 WBC 10.1 RBC 4.27 Hgb 12.9 Hct 37.8 MCV 88.4 MCH 30.2 MCHC 34.2 RDW 15.0 Plt Count 406 MPV 8.3 Neut % (Auto) 64.6 Lymph % (Auto) 24.5 [place] % (Auto) 5.7 Eos % (Auto) 4.0 Baso % (Auto) 1.2 Neut # (Auto) 6.6 Lymph # (Auto) 2.5 [place] # (Auto) 0.6 Eos # (Auto) 0.4 Baso # (Auto) 0.1 WBC Differential . Differential Comment Auto diff final ESR PT INR APTT Sodium 140 Potassium 4.0 D Chloride 110 H Carbon Dioxide 19.9 L Anion Gap 10 BUN 10 Creatinine 0.79 Estimated GFR 79 L Random Glucose 102 Calcium 8.6 Total Bilirubin 0.1 L AST 13 L ALT 36 Alkaline Phosphatase 76 Total Creatine Kinase CK-MB (CK-2) Troponin I Total Protein 6.2 L D Albumin 2.8 L Triglycerides Cholesterol LDL Cholesterol, Calc HDL Cholesterol Cholesterol/HDL Ratio TSH Urine Color Yellow Urine Clarity Hazy H Urine pH 5.0 Ur Specific [place] 1.018 Urine Protein Negative Urine Glucose (UA) Negative Urine Ketones Negative Urine Occult Blood Negative Urine Nitrate Negative Urine Bilirubin Negative Urine Urobilinogen Less than 2 Ur Leukocyte Esterase Negative Urine RBC 1 Urine WBC 2 Ur Squamous Epith Cells 8 Urine Bacteria Rare H Urine Mucus Few H Micro UA Comment Culture not ind Ur Microscopic Review Not Reportable Urine Culture Comments Culture not ind 03/24/18 03/24/18 07:10 07:10 WBC RBC Hgb Hct MCV MCH MCHC RDW Plt Count MPV Neut % (Auto) Lymph % (Auto) [place] % (Auto) Eos % (Auto) Baso % (Auto) Neut # (Auto) Lymph # (Auto) [place] # (Auto) Eos # (Auto) Baso # (Auto) WBC Differential Differential Comment ESR 9 PT INR APTT Sodium Potassium Chloride Carbon Dioxide Anion Gap BUN Creatinine Estimated GFR Random Glucose Calcium Total Bilirubin AST ALT Alkaline Phosphatase Total Creatine Kinase CK-MB (CK-2) Troponin I Total Protein Albumin Triglycerides 142 Cholesterol 204 H LDL Cholesterol, Calc 125 H HDL Cholesterol 51.1 Cholesterol/HDL Ratio 3.99 TSH 1.520 Urine Color Urine Clarity Urine pH Ur Specific [place] Urine Protein Urine Glucose (UA) Urine Ketones Urine Occult Blood Urine Nitrate Urine Bilirubin Urine Urobilinogen Ur Leukocyte Esterase Urine RBC Urine WBC Ur Squamous Epith Cells Urine Bacteria Urine Mucus Micro UA Comment Ur Microscopic Review Urine Culture Comments - Imaging Impressions Carotid Doppler Study 03/23/18 00:00 CONCLUSION: 1. Right Internal Carotid Artery: No significant stenosis or atherosclerotic plaque is visualized. 2. Left Internal Carotid Artery: No significant stenosis or atherosclerotic plaque is visualized. Head MRI 03/23/18 00:00 CONCLUSION: 1. No acute findings. Specifically no evidence for recent infarction. Head MRA 03/23/18 00:00 CONCLUSION: 1. No acute findings. Chest X-Ray 03/23/18 16:33 CONCLUSION: Negative examination. Cervical Spine MRI 03/24/18 08:32 CONCLUSION: 1. There is mild disc desiccation and a tiny central disc bulge at C6-7. 2. Minimal anterior osteophyte formation at C5-6. Assessment and Plan - Plan 47-year-old female with a past medical history significant for previous CVA, COPD, bipolar disorder, depression and schizophrenia presents to the emergency department for the evaluation of neurologic symptoms that began last night. Neurological deficits with acute onset of dysarthria/slurred speech/weakness: Concern for TIA versus CVA. Patient with history of CVA, not on any antiplatelets. -Head CT reviewed and unremarkable -Brain MRI/MRA reviewed, no acute findings -Start on aspirin -Lipid panel with elevated LDL 125, started on Lipitor -Neurochecks -Monitor on telemetry -Consult OT/ST, recommending home health care -Consulted neurology, ordered EEG and C-spine MRI -Patient with loud 4/6 systolic murmur on exam, although patient reports long history of murmur, will check echocardiogram Hyperlipidemia: LDL 125. Goal < 70. -LFTs wnl -Start on Lipitor 40mg hs, discussed risks with the patient and mom, agrees to start statin -Repeat LFTs as outpatient Bipolar/Schizophrenia/Depression: chronic -continue patient's home medications -outpatient f/up COPD: chronic, does not appear to be in exacerbation, lungs clear on exam -duonebs as needed DVT Prophylaxis: Heparin sq Discharge Planning: Discharge pending EEG, MRI C-spine, and neurology clearance.
[2018-03-24] MEDS ORDERED: Topiramate 25 MG Tablet PO SCH (15:15)
--- NOTE | 2018-03-24 15:42 | MG ---
cc: Jan Merchant MD EEG #[id number] 8-9 alpha activity, 20-50 microvolts, bursts of frontal sharp waves occurring. Epoch 8 thereafter paroxysmally. High amplitude, sharply contoured theta activity bursts, most prominent in the frontal region. Attenuation slowing of the background transition into drowsy state followed by stage I and stage II sleep. Appearance of spindles. Slight sharp activity noted, frontal region Epoch A6. Single lead EKG showing sinus rhythm. Good EEG variability and reactivity. INTERPRETATION: Some frontal irritability noted. Awake-sleep electroencephalogram. Clinical correlation. Jan Merchant MD MG/sb , 03:27 PM , 03:33 PM
--- NOTE | 2018-03-24 16:04 | P.DCO ---
- Diagnosis (1) TIA (transient ischemic attack) Status: Acute (2) HLD (hyperlipidemia) Status: Acute (3) Aphasia Status: Acute (4) Bipolar 1 disorder Status: Acute (5) Schizophrenia Status: Acute - Physical Therapy Order: Evaluate and treat, Improve ambulation, Strength and gait training - Home Health Nursing Order: Medical education, Signs/symptoms of disease process, Nursing assessment with vital signs - Case Management Consult Yes - Certification I have seen patient Tamie Thakkar on 03/24/18. My clinical findings support the need for the requested home health care services because: Deconditioned with increased weakness, Limited ability to care for self, Impaired cognition/judgement I certify that my clinical findings support that this patient is homebound because: Impaired cognitive ability/safety, Unsteady gait/balance, Unsafe to leave home unassisted, Unable to use public transportation (5) Schizophrenia Qualifiers: Schizophrenia type: paranoid schizophrenia Qualified Code(s): F20.0 - Paranoid schizophrenia
--- NOTE | 2018-03-24 16:11 | ECG ---
Date Performed: 03/24/2018 Time Performed: 00:39:02 PTAGE: 47 years EKG: Sinus rhythm LOW QRS VOLTAGE IN PRECORDIAL LEADS Since previous tracing, no significant change noted BORDERLINE E CG PREVIOUS TRACING : 01/30/2012 16.52 DOCTOR: Dragan Garces Interpretating Date/Time 03/24/2018 16:09:53
--- NOTE | 2018-03-24 16:47 | US ---
EXAM DATE: 03/24/2018 12:00 AM EDT AGE/SEX: 47 years / Female INDICATIONS: Left lower extremity pain. CLINICAL DATA: This is the patient's initial encounter. Patient reports that signs and symptoms have been present for 1 day and indicates a pain score of 4/10. MEDICAL/SURGICAL HISTORY: . Bipolar disorder. Urinary tract infection. Neuropathy. section. Tubal ligation. COMPARISON: No prior exams available for comparison. TECHNIQUE: Venous ultrasound of both lower extremities was performed from the inguinal ligament to t he proximal calf. Real-time, color Doppler and spectral tracing, compression and augmentation techni ques were used. FINDINGS: Normal compression of the deep venous system from the inguinal region to the proximal calf . No echogenic clot is seen. Normal response of the venous system to augmentation and respiration. CONCLUSION: 1. The study is negative for lower extremity deep venous thrombosis. Electronically signed by: Wade Osman MD 03/24/2018 4:46 PM EDT
[2018-03-24 17:12] LABS: Hemoglobin A1c 5.8 % (4.3-6.0)
[2018-03-24] MEDS: Sertraline 100 MG Tablet PO SCH (17:13)
[2018-03-24] MEDS: Gabapentin 300 MG Capsule PO SCH (17:13)
--- NOTE | 2018-03-24 18:05 | ECHRPT ---
Indication: CVA/TIA CONCLUSIONS The left ventricular systolic function is hyperdynamic with an estimated ejection fraction in the ra nge of 65- 70%. Normal left ventricular size. Wall thickness is normal. No regional wall motion abnormalities are present. Mild thickening of the mitral valve leaflets. Trace mitral valve regurgitation. Aortic valve sclerosis is present. Mild aortic valve regurgitation. Mild aortic valve stenosis. Aortic valve area is 1.1 cm. Aortic valve mean gradient is 24.5 mmHg. Mild thickening of the tricuspid valve leaflets. There is mild tricuspid valve regurgitation. The estimated pulmonary arterial pressure is 33 mmHg. BP: / HR: Rhythm: Sinus MEASUREMENTS (Male / Female) Normal Values Technical Quality:Good 2D ECHO LV Diastolic Diameter PLAX 4.2 cm 4.2 - 5.9 / 3.9 - 5.3 cm LV Systolic Diameter PLAX 2.6 cm IVS Diastolic Thickness 0.8 cm 0.6 - 1.0 / 0.6 - 0.9 cm LVPW Diastolic Thickness 0.8 cm 0.6 - 1.0 / 0.6 - 0.9 cm LV Relative Wall Thickness 0.4 LVOT Diameter 1.5 cm LA Systolic Diameter LX 2.6 cm 3.0 - 4.0 / 2.7 - 3.8 cm LV Ejection Fraction MOD 4C 73.5 % LV Ejection Fraction 4C AL 79.7 % M-MODE Aortic Root Diameter MM 2.3 cm LA Systolic Diameter MM 3.0 cm LA Ao Ratio MM 1.3 AV Cusp Separation MM 1.6 cm DOPPLER AV Peak Velocity 344.0 cm/s AV Peak Gradient 47.3 mmHg AV Mean Gradient 24.5 mmHg AV Velocity Time Integral 71.8 cm AI Peak Velocity 294.0 cm/s AI Peak Gradient 34.6 mmHg AI Pressure Half Time 438.0 ms LVOT Peak Velocity 230.0 cm/s LVOT Peak Gradient 21.2 mmHg LVOT Velocity Time Integral 43.7 cm AV Area Cont Eq vti 1.1 cm AV Area Cont Eq pk 1.2 cm MV Area PHT 3.7 cm Mitral E Point Velocity 85.4 cm/s Mitral A Point Velocity 55.8 cm/s Mitral E to A Ratio 1.5 LV E' Lateral Velocity 10.7 cm/s Mitral E to LV E' Lateral Ratio 8.0 LV E' Septal Velocity 11.1 cm/s Mitral E to LV E' Septal Ratio 7.7 TR Peak Velocity 240.0 cm/s TR Peak Gradient 23.0 mmHg Right Atrial Pressure 10.0 mmHg Pulmonary Artery Systolic Pressu 33.0 mmHg Right Ventricular Systolic Press 33.0 mmHg PV Peak Velocity 121.0 cm/s PV Peak Gradient 5.9 mmHg FINDINGS LEFT VENTRICLE The left ventricular systolic function is hyperdynamic with an estimated ejection fraction in the ra nge of 65- 70%. Normal left ventricular size. Wall thickness is normal. No regional wall motion abnormalities are present. RIGHT VENTRICLE Normal right ventricular size and systolic function. LEFT ATRIUM The left atrial size is normal. RIGHT ATRIUM The right atrial size is normal. ATRIAL SEPTUM Normal atrial septal thickness without atrial level shunting by limited color doppler interrogation. AORTA The aortic root and proximal ascending aorta are normal in size on limited imaging. MITRAL VALVE Mild thickening of the mitral valve leaflets. Trace mitral valve regurgitation. AORTIC VALVE Trileaflet aortic valve. Aortic valve leaflets mildly thickened Mild aortic valve regurgitation. Mild aortic valve stenosis as determined by Doppler. Aortic valve area is 1.1 cm. Aortic valve mean gradient is 24.5 mmHg. TRICUSPID VALVE Mild thickening of the tricuspid valve leaflets. There is mild tricuspid valve regurgitation. The estimated pulmonary arterial pressure is 33 mmHg. PULMONARY VALVE No pulmonary valve regurgitation or stenosis. VESSELS The inferior vena cava is normal in size. PERICARDIUM No pericardial effusion. Jerome Crooks MD (Electronically Signed) Final Date:24 March 2018 18:04
[2018-03-24] MEDS: Heparin - SQ 10,000 UNITS/ML Vial SQ SCH (20:38)
[2018-03-24] MEDS ORDERED: LORazepam 1 MG Tablet PO ONE (20:53)
[2018-03-24] MEDS ORDERED: Temazepam 15 MG Capsule PO PRN (21:00)
[2018-03-24] MEDS ORDERED: traZODone 100 MG Tablet PO SCH (21:00)
[2018-03-24] MEDS: Topiramate 100 MG Tablet PO SCH (21:44)
[2018-03-24 23:41] VITALS: TEMP 98.5
[2018-03-25 03:55] VITALS: O2SAT 97
[2018-03-25] MEDS: Sod Chloride 0.9% Inj 1,000 ML IV.CONT SCH ×2 (04:28→10:31)
[2018-03-25 08:07] VITALS: BP 96/63; PULSE 71; RESP 20
--- NOTE | 2018-03-25 08:12 | P.PNNEU ---
Subjective Subjective Comments: No cp, no dyspnea, no focal weakness, no vision loss. Complains of mild frontal headache no temporal pain, awaiting breakfast Active Medications: Active Medications Al Hydroxide/Mg Hydroxide (Milk Of Erin Messer) 30 ml PO Q12H PRN PRN Reason: Mild Constipation Albuterol (Duoneb Neb (Prn)) 1 ampul NEB Q4HR NEB PRN PRN Reason: SOB/wheezing Aspirin (Aspirin) 325 mg PO DAILY [facility] Last Admin: 03/24/18 08:39 Dose: 325 mg Atorvastatin Calcium (Lipitor) 40 mg PO HS [facility] Last Admin: 03/24/18 20:37 Dose: 40 mg Gabapentin (Neurontin) 300 mg PO TID [facility] Last Admin: 03/24/18 17:13 Dose: 300 mg Heparin Sodium (Porcine) (Heparin Inj) 5,000 units SQ Q12HR [facility] Last Admin: 03/24/18 20:38 Dose: 5,000 units Hydroxyzine HCl (Atarax) 25 mg PO TID PRN PRN Reason: Anxiety Sodium Chloride (Ns Inj) 1,000 mls @ 100 mls/hr IV.CONT .Q10H [facility] Last Admin: 03/25/18 04:28 Dose: 100 mls/hr Quetiapine Fumarate (Seroquel) 400 mg PO BID [facility] Sertraline HCl (Zoloft) 100 mg PO DAILY [facility] Last Admin: 03/24/18 17:13 Dose: 100 mg Temazepam (Restoril) 15 mg PO HS PRN PRN Reason: INSOMNIA Topiramate (Topamax) 100 mg PO BID [facility] Last Admin: 03/24/18 21:44 Dose: 100 mg Trazodone HCl (Desyrel) 100 mg PO HS [facility] Last Admin: 03/24/18 20:37 Dose: 100 mg Ziprasidone (Geodon) 40 mg PO BID [facility] Last Admin: 03/24/18 20:37 Dose: 40 mg Allergies/Adverse Reactions: Allergies Allergy/AdvReac Type Severity Reaction Status Date / Time dextromethorphan Allergy Severe FACE Verified 02/21/18 02:00 SWELLED guaifenesin Allergy Severe FACE Verified 02/21/18 02:00 SWELLED Review of Systems All other systems reviewed negative except as stated in HPI Physical Exam Vital signs: Vital Signs 03/24/18 08:30 03/24/18 12:00 03/24/18 16:00 Temperature 98.0 F 98.7 F Pulse Rate 73 69 Respiratory Rate 16 16 Blood Pressure 125/75 121/79 Pulse Oximetry 98 99 99 03/24/18 20:00 03/24/18 23:41 03/25/18 03:53 Temperature 98.5 F Pulse Rate 81 66 68 Respiratory Rate 16 16 17 Blood Pressure 119/74 109/72 122/78 Pulse Oximetry 99 98 97 03/25/18 04:00 03/25/18 08:00 Temperature Pulse Rate 72 75 Respiratory Rate Blood Pressure Pulse Oximetry Intake & Output 03/24/18 03/25/18 03/25/18 18:59 06:59 18:59 Intake Total 1000 / 1000 Balance 1000 / 1000 Intake: IV 1000 / 1000 NS Inj 1,000 ML @ 100 mls/hr IV 1000 / 1000 .CONT .Q10H [facility] C Rx#:[id number] Other: # Voids 3 Narrative: GENERAL: in NAD, sitting up in bed drinking a beverage and I came in to see her looks comfortable SKIN: Warm and dry. HEAD: Atraumatic. Normocephalic. EYES: Pupils equal and round. No scleral icterus. ENT: No nasal bleeding or discharge. Mucous membranes pink and moist. NECK: Trachea midline. No JVD. CARDIOVASCULAR: Regular rate and rhythm. RESPIRATORY: No accessory muscle use. GASTROINTESTINAL: Abdomen soft, non-tender, nondistended. MUSCULOSKELETAL: Extremities without clubbing, cyanosis, or edema. No obvious deformities. NEUROLOGICAL: Awake and alert. No aphasia, oriented x3 pleasant, calm fluent articulate, no temporal tenderness no facial asymmetry, OU 3-2mm, eomi, VFF, No drift, Motor grossly within normal limits. Five out of 5 muscle strength in the arms and legs. Tone normal in all 4 limbs, Sensory normal in all 4 extremities to pin, msr 2++ sym, no clonus, planterflexor, gait not assessed secondary fall risk PSYCHIATRIC: Appropriate mood and affect; insight and judgment normal. - Constitutional no acute distress - Routine HEENT Exam Head: Present: normocephalic Eye: Present: EOMI Objective Laboratory Results - last 24 hr 03/24/18 03/24/18 03/24/18 07:10 07:10 07:10 ESR 9 Hemoglobin A1c 5.8 Triglycerides 142 Cholesterol 204 H LDL Cholesterol, Calc 125 H HDL Cholesterol 51.1 Cholesterol/HDL Ratio 3.99 TSH 1.520 Review/Management - Diagnosis (1) Depression Code(s): F32.9 - Major depressive disorder, single episode, unspecified Status : Acute Current Visit: Yes (2) Bipolar 1 disorder Code(s): F31.9 - Bipolar disorder, unspecified Status: Acute Current Visit: Yes (3) Schizophrenia Code(s): F20.9 - Schizophrenia, unspecified Status: Acute Current Visit: No (4) Migraine Code(s): G43.909 - Migraine, unspecified, not intractable, without status migrainosus Status: Acute Current Visit: Yes - Review/Management Plan: Questionable history of previous stroke questionable current symptoms Possible psychogenic component associate with her psychiatric illness MRI brain scan negative for any stroke, MRA brain normal. Echo showing EF greater than 6070% MRI C-spine no cord lesion ESR normal. No leukocytosis afebrile History of chronic headaches on Topamax and gabapentin EEG abnormal however per the findings may be related to some psychotropic medication she is on Recommendation Topamax dose increased Fioricet as needed for headache Pain control Discharge planning No driving Needs outpatient follow-up with primary care, psychiatry and can follow-up with us headache Behavioral modification and risk factor reduction. Weight loss, blood pressure control, blood sugar control, lipid control. Exercise (3) Schizophrenia Qualifiers: Schizophrenia type: paranoid schizophrenia Qualified Code(s): F20.0 - Paranoid schizophrenia
[2018-03-25] MEDS ORDERED: Butalbital/APAP/Caff 50/325/40 MG Tablet PO PRN (08:38)
--- NOTE | 2018-03-25 08:50 | P.PN ---
Subjective Interval history: Follow-up for multiple neurological complaints, suspected TIA. Patient feels back to her baseline. She states she had a mild headache this morning but feels better after eating breakfast. She denies any unilateral numbness or weakness overnight or today. Denies any chest pain, palpitations, shortness of breath, or abdominal complaints. We again discussed her new medications and recommendations from Dr. Merchant, patient verbalized understanding. Patient feels ready for discharge. She has been ambulating her room without difficulty. She was instructed to follow-up with her PCP, psychiatrist, and neurology Dr. Merchant. Physical Exam Vital signs: Vital Signs 03/24/18 12:00 03/24/18 16:00 03/24/18 20:00 Temperature 98.0 F 98.7 F Pulse Rate 73 69 81 Respiratory Rate 16 16 16 Blood Pressure 125/75 121/79 119/74 Pulse Oximetry 99 99 99 03/24/18 23:41 03/25/18 03:53 03/25/18 04:00 Temperature 98.5 F Pulse Rate 66 68 72 Respiratory Rate 16 17 Blood Pressure 109/72 122/78 Pulse Oximetry 98 97 03/25/18 08:00 Temperature 98.5 F Pulse Rate 71 Respiratory Rate 20 Blood Pressure 96/63 L Pulse Oximetry 97 Intake & Output 03/24/18 03/25/18 03/25/18 18:59 06:59 18:59 Intake Total 1000 / 1000 Balance 1000 / 1000 Intake: IV 1000 / 1000 NS Inj 1,000 ML @ 100 mls/hr IV 1000 / 1000 .CONT .Q10H [facility] C Rx#:[id number] Other: # Voids 3 Narrative: GENERAL: Well-nourished, well-developed middle-aged female patient in [employer]. SKIN: Warm and dry. No rash. HEENT: Normocephalic. Atraumatic. Pupils equal and round. Mucous membranes pink and moist. NECK: Supple. Trachea midline. CARDIOVASCULAR: Regular rate and rhythm. 4/6 systolic murmur heard best at LUSB. RESPIRATORY: No accessory muscle use. Clear to auscultation. Breath sounds equal bilaterally. GASTROINTESTINAL: Abdomen soft, non-tender, nondistended. Normoactive bowel sounds x4. MUSCULOSKELETAL: No obvious deformities. Extremities without clubbing, cyanosis , or edema. NEUROLOGICAL: Awake and alert. No obvious cranial nerve deficits. 5/5 strength in bilateral upper and lower extremities. Normal speech. No facial droop/lid lag/tongue deviation. PSYCHIATRIC: Appropriate mood and affect; insight and judgment normal. Results - Labs CBC & Chem 7: 03/24/18 07:10 03/24/18 07:10 Laboratory Results - last 24 hr 03/24/18 03/24/18 03/24/18 07:10 07:10 07:10 ESR 9 Hemoglobin A1c 5.8 Triglycerides 142 Cholesterol 204 H LDL Cholesterol, Calc 125 H HDL Cholesterol 51.1 Cholesterol/HDL Ratio 3.99 TSH 1.520 - Imaging Impressions Venous Doppler Study 03/24/18 00:00 CONCLUSION: 1. The study is negative for lower extremity deep venous thrombosis. Cervical Spine MRI 03/24/18 08:32 CONCLUSION: 1. There is mild disc desiccation and a tiny central disc bulge at C6-7. 2. Minimal anterior osteophyte formation at C5-6. Assessment and Plan - Assessment (1) TIA (transient ischemic attack) Code(s): G45.9 - Transient cerebral ischemic attack, unspecified Status: Acute (2) HLD (hyperlipidemia) Code(s): E78.5 - Hyperlipidemia, unspecified Status: Acute (3) Aphasia Code(s): R47.01 - Aphasia Status: Acute (4) Bipolar 1 disorder Code(s): F31.9 - Bipolar disorder, unspecified Status: Acute (5) Schizophrenia Code(s): F20.9 - Schizophrenia, unspecified Status: Acute - Plan 47-year-old female with a past medical history significant for previous CVA, COPD, bipolar disorder, depression and schizophrenia presents to the emergency department for the evaluation of neurologic symptoms that began last night. Neurological deficits with acute onset of dysarthria/slurred speech/weakness: Concern for TIA versus CVA. Patient with history of CVA, not on any antiplatelets. Symptoms now resolved. -Head CT reviewed and unremarkable -Brain MRI/MRA reviewed, no acute findings -Start on aspirin -Lipid panel with elevated LDL 125, started on Lipitor -Neurochecks -Monitor on telemetry -Consult PT/OT/ST, recommending home health care, case management consulted -Consulted neurology, ordered EEG and C-spine MRI -EEG abnormal, however neurology felt this is related to her psychotropics -C-spine MRI with mild disc desiccation and tiny central disc bulge at C6-7; otherwise no central canal stenosis -Patient with loud 4/6 systolic murmur on exam, although patient reports long history of murmur, checked echocardiogram which was unremarkable with EF 65 -70% -Neurology cleared for discharge on aspirin/statin, outpatient follow-up, no driving until cleared by physician Headache: Intermittent, mild throughout admission -On Topamax at home, dose increased by neurology -Neurology also ordered Fioricet as needed for headache -Symptoms improved Hyperlipidemia: LDL 125. Goal < 70. -LFTs wnl -Started on Lipitor 40mg hs, discussed risks with the patient and mom, agrees to start statin -Repeat LFTs as outpatient Bipolar/Schizophrenia/Depression: chronic -continue patient's home medications -outpatient f/up -Advised patient to follow-up with outpatient psychiatrist as soon as possible, on multiple psychotropics including Seroquel and Geodon which is not recommended COPD: chronic, does not appear to be in exacerbation, lungs clear on exam -duonebs as needed DVT Prophylaxis: Heparin sq Discharge Planning: Discharge patient to home with [facility] Condition on discharge: Stable Heart Healthy Diet as tolerated Ad Kenna activity Rx written: aspirin, lipitor, topamax, fioricet prn Follow-up with primary care physician, psychiatrist, and neurology Dr. Merchant (5) Schizophrenia Qualifiers: Schizophrenia type: paranoid schizophrenia Qualified Code(s): F20.0 - Paranoid schizophrenia
[2018-03-25] MEDS: Aspirin 325 MG Tablet PO SCH (09:11)
[2018-03-25] MEDS: Heparin - SQ 10,000 UNITS/ML Vial SQ SCH (09:11)
[2018-03-25] MEDS: Sertraline 100 MG Tablet PO SCH (09:12)
[2018-03-25] MEDS: Topiramate 100 MG Tablet PO SCH (09:12)
[2018-03-25] MEDS: Gabapentin 300 MG Capsule PO SCH (09:12)
== END 2018-03-25 10:41 | disposition home health service (06) ==
LOC: NEDA 11:39 → NEPC 11:39 → NEPHCDU 19:36
PROVIDERS: ADMIT Hospitalist; ATTEND Hospitalist